=== PATIENT | female | born 1945 | race Caucasian/White ===

== ENCOUNTER → 2020-04-04 12:33 | Outpatient (BNVA) | payer MEDICARE, SELFPAY | PROVIDERS: Family Provider Family Medicine; PCP Family Medicine; Referring Provider Family Medicine; Visit Provider Specialist | DX: G30.9 Alzheimer's disease, unspecified (principal); F02.80 Dementia in other diseases classified elsewhere, unspecified severity, without behavioral disturbance, psychotic disturbance, mood disturbance, and anxiety; Z87.891 Personal history of nicotine dependence | CPT/HCPCS: 99204 ==

== ENCOUNTER → 2020-06-06 14:57 | Outpatient (BNVA) | payer MEDICARE, SELFPAY | PROVIDERS: Family Provider Family Medicine; PCP Family Medicine; Visit Provider Internal Medicine | DX: M32.9 Systemic lupus erythematosus, unspecified (principal); M19.90 Unspecified osteoarthritis, unspecified site | CPT/HCPCS: 99213 ==

== ENCOUNTER → 2020-06-18 10:07 | Outpatient (BNVA) | payer MEDICARE, SELFPAY | PROVIDERS: Family Provider Family Medicine; PCP Family Medicine; Visit Provider Family Medicine | DX: D50.9 Iron deficiency anemia, unspecified (principal); E53.8 Deficiency of other specified B group vitamins; Z13.6 Encounter for screening for cardiovascular disorders | CPT/HCPCS: 80053; 80061; 82607; 85025 ==

== ENCOUNTER → 2020-06-20 11:35 | Outpatient (BNVA) | payer MEDICARE, SELFPAY | PROVIDERS: Family Provider Family Medicine; PCP Family Medicine; Visit Provider Specialist | DX: G30.9 Alzheimer's disease, unspecified (principal); F02.80 Dementia in other diseases classified elsewhere, unspecified severity, without behavioral disturbance, psychotic disturbance, mood disturbance, and anxiety; R41.3 Other amnesia | CPT/HCPCS: 99213 ==

== ENCOUNTER → 2021-01-09 08:52 | Outpatient (BNVA) | payer MEDICARE, SELFPAY | PROVIDERS: Family Provider Family Medicine; PCP Family Medicine; Visit Provider Specialist | DX: G31.01 Pick's disease (principal); G30.9 Alzheimer's disease, unspecified; F02.80 Dementia in other diseases classified elsewhere, unspecified severity, without behavioral disturbance, psychotic disturbance, mood disturbance, and anxiety; R45.1 Restlessness and agitation; Z87.891 Personal history of nicotine dependence | CPT/HCPCS: 99214 ==

== ENCOUNTER → 2021-06-06 15:33 | Outpatient (BNVA) | payer MEDICARE, SELFPAY | PROVIDERS: Family Provider Family Medicine; PCP Family Medicine; Visit Provider Family Medicine | DX: Z13.6 Encounter for screening for cardiovascular disorders (principal); M19.90 Unspecified osteoarthritis, unspecified site; R60.9 Edema, unspecified; Z78.0 Asymptomatic menopausal state; Z12.31 Encounter for screening mammogram for malignant neoplasm of breast | CPT/HCPCS: 80053; 80061; 85025; 85651; 86140 ==

== ENCOUNTER → 2021-07-09 09:15 | Outpatient (BNVA) | payer MEDICARE, SELFPAY | PROVIDERS: Family Provider Family Medicine; PCP Family Medicine; Visit Provider Specialist | DX: G30.9 Alzheimer's disease, unspecified (principal); F02.80 Dementia in other diseases classified elsewhere, unspecified severity, without behavioral disturbance, psychotic disturbance, mood disturbance, and anxiety; R45.1 Restlessness and agitation; Z87.891 Personal history of nicotine dependence | CPT/HCPCS: 99214 ==

== ENCOUNTER 2021-07-24 13:30 | Outpatient (CLI) | payer MEDICARE, SELFPAY ==
--- NOTE | 2021-07-24 13:39 | MM_ITS ---
WS: [id number] BILATERAL DIGITAL SCREENING MAMMOGRAPHY WITH CAD CLINICAL INFORMATION: annual screening HISTORY: Screening mammogram. No current complaints. COMPARISON: TECHNIQUE: Bilateral CC and MLO views. FINDINGS: The breasts are composed of heterogeneous fibroglandular density tissue, which can limit the detectio n of small underlying mass lesions. No suspicious mass, asymmetry, calcifications, or architectural d istortion. No evidence of malignancy. A few punctate calcifications subareolar left breast are stable . Lucent centered calcification. MM/[place] [id number] IMPRESSION: BI-RADS: 2-Benign FOLLOW UP: 1 Year Follow-up Recommend return to annual screening mammography.
== END 2021-07-24 13:31 | disposition home or self-care (01) ==
LOC: RADSHAW 13:37
PROVIDERS: PCP Family Medicine; Visit Provider Family Medicine
DX: Z12.31 Encounter for screening mammogram for malignant neoplasm of breast (principal)
CPT/HCPCS: 77067

== ENCOUNTER → 2021-07-25 09:48 | Outpatient (BNVA) | payer MEDICARE, SELFPAY | PROVIDERS: PCP Family Medicine; Visit Provider Internal Medicine Rheumatology | DX: M06.041 Rheumatoid arthritis without rheumatoid factor, right hand (principal); M06.042 Rheumatoid arthritis without rheumatoid factor, left hand; Z79.899 Other long term (current) drug therapy; Z11.59 Encounter for screening for other viral diseases; Z11.1 Encounter for screening for respiratory tuberculosis; R76.8 Other specified abnormal immunological findings in serum; G30.9 Alzheimer's disease, unspecified; F02.80 Dementia in other diseases classified elsewhere, unspecified severity, without behavioral disturbance, psychotic disturbance, mood disturbance, and anxiety; Z71.89 Other specified counseling; Z87.891 Personal history of nicotine dependence | CPT/HCPCS: 99214 ==

== ENCOUNTER → 2021-10-15 08:12 | Outpatient (BNVA) | payer MEDICARE, SELFPAY | PROVIDERS: PCP Family Medicine; Visit Provider Specialist | DX: G30.9 Alzheimer's disease, unspecified (principal); F02.80 Dementia in other diseases classified elsewhere, unspecified severity, without behavioral disturbance, psychotic disturbance, mood disturbance, and anxiety | CPT/HCPCS: 99214 ==

== ENCOUNTER → 2021-10-23 10:54 | Outpatient (BNVA) | payer MEDICARE, SELFPAY | PROVIDERS: PCP Family Medicine; Visit Provider Family Medicine | DX: E53.8 Deficiency of other specified B group vitamins (principal); M19.90 Unspecified osteoarthritis, unspecified site; Z11.59 Encounter for screening for other viral diseases; Z79.899 Other long term (current) drug therapy | CPT/HCPCS: 80076; 82565; 85025; 86140; 86704; 86803; 87340 ==

== ENCOUNTER → 2021-11-05 12:46 | Outpatient (BNVA) | payer MEDICARE, SELFPAY | PROVIDERS: PCP Family Medicine; Visit Provider Internal Medicine Rheumatology | DX: M19.90 Unspecified osteoarthritis, unspecified site (principal); R76.8 Other specified abnormal immunological findings in serum; Z79.899 Other long term (current) drug therapy; G30.9 Alzheimer's disease, unspecified; Z71.89 Other specified counseling; Z87.891 Personal history of nicotine dependence | CPT/HCPCS: 99214 ==

== ENCOUNTER 2021-12-06 09:01 | Emergency (ER) | payer MEDICARE, SELFPAY ==
--- NOTE | 2021-12-06 09:04 | ED_ITS ---
HPI - Syncope General: Chief Complaint: Syncope Stated Complaint: SYNCOPAL EPISODE Time Seen by Provider: 12/06/21 09:04 Source: family and EMS Mode of arrival: EMS Limitations: altered mental status History of Present Illness: HPI narrative: Ms. Metzger is a 76-year-old lady with history of dementia, lupus, rheumatoid arthritis who presents to the emergency department due to syncope and chest pain. History is limited by patient's baseline mental status however provided by patient's family at bedside. Reportedly she has been at her baseline health, perhaps a little more disturbance in sleep than normal however no significant other changes. This morning she was sitting in coffee and all of a sudden appeared distressed. She grabbed her chest and said ouch. She subsequently appeared more distress for a number of minutes and then had a syncopal episode. Shallow breathing associated with this however reportedly normal pulse and color. Lasted approximately 7 minutes and resolved prior to EMS arrival. No history of similar. No other significant changes in health, exacerbating, relieving factors identified. History otherwise limited by patient's baseline mental status complaint: loss of consciousness Onset (ago): minute(s) Duration of episode: 7 -: minutes(s) Prodromal symptoms: chest pain Witnessed: Yes - by Other () Context: at rest Associated symptoms: Reports no associated symptoms Treatments prior to arrival: none Review of Systems General: Reports: 10 or more systems reviewed and unremarkable except in HPI and below (Questionable reliability from patient, aided by family) [facility] ED PFSH: Medical History High risk medication use Immunization counseling Inflammatory arthritis Lupus Osteoarthritis Osteoporosis Positive PILAR (antinuclear antibody) Post-menopausal Seronegative rheumatoid arthritis of both hands Vitamin B12 deficiency Surgical History H/O: hysterectomy History of tonsillectomy Family History Father Alzheimer disease Mother CAD (coronary artery disease) Social History Quit status (tobacco): has quit using tobacco Year quit tobacco: 20 years ago Physical Exam Const: COMMON NORMALS: alert GENERAL APPEARANCE: cooperative and well developed ORIENTATION/CONSCIOUSNESS: not oriented to person, not oriented to place and not oriented to time HENMT: COMMON NORMALS: normocephalic and atraumatic HEAD & SCALP: normocephalic and atraumatic THROAT: posterior oropharynx normal Eye: COMMON NORMALS: conjunctivae normal CONJUNCTIVA: Yes conjunctivae normal SCLERA: sclerae normal Neck/C-Spine: COMMON NORMALS: supple GENERAL: Yes trachea midline Resp: COMMON NORMALS: normal respiratory effort and clear to auscultation bilaterally AUSCULTATION: clear to auscultation bilaterally Cardio: COMMON NORMALS: regular rate and regular rhythm RATE: regular rate RHYTHM: regular rhythm GI: COMMON NORMALS: Soft to palpation PALPATION: Yes Soft to palpation and No Tenderness to palpation present (GI) PERCUSSION: normal to percussion Extremity: GENERAL: Yes normal exam except as noted and No edema Neuro: COMMON NORMALS: moves all extremities, no focal motor deficits and no sensory deficits noted SENSORIUM/ORIENTATION: Yes alert, No oriented to person, No oriented to place, No oriented to time and Yes Orientation impaired OTHER: Limited neurologic exam due to patient ability to perform tasks. No gross focal neurologic or sensory deficit appreciated. Psych: THOUGHT PROCESS: confused MEMORY/COGNITION: Yes memory grossly impaired Course ED course: - Patient was seen and evaluated by me at bedside - Vital signs obtained - Exam as noted above, tearful, limited history secondary to baseline mental status - I ordered labs and imaging on this patient however was notified afterwards, apparently after IV attempt that was unsuccessful, that the family wishes to take the patient home. - I explained my concerns including the seriousness of reported history of requiring immediate further evaluation to rule out life-threatening conditions. Patient's family verbalized understanding however continues to desire to take her home. I explained risks of leaving AGAINST MEDICAL ADVICE and benefits of further testing. I explained risk specifically of or permanent pain/debility. They verbalized understanding. Family understands that they may return to the emergency department with the patient for any reason at any time. Note: Click bubbles or prepopulated forte in note writing are used for assistance with data collection and billing and are inherently more limited than narrative and other text portions of this note. Please use narrative for additional clinical history and defer to narrative/free test for any case of contradictory information. If information appears in only free text or click bubble it should be considered present or absent as reported. Please contact note technical writer and editor for clarifications of clinical information or contradictory information. MDM is a brief summary, contradictory or erroneous seeming information should be clarified and full note should be reviewed. Vital Signs: Vital signs: Vital Signs Temperature 97.1 F L 12/06/21 09:05 Pulse Rate 68 12/06/21 09:05 Respiratory Rate 12 12/06/21 09:05 Blood Pressure 212/111 12/06/21 09:05 Pulse Oximetry 93 12/06/21 09:05 MDM - Syncope MDM Narrative Medical decision making narrative: 76-year-old lady with history of dementia presenting for very concerning syncopal episode. Approximately 7 minutes of unresponsive time that was preceded by indication of chest pain. Nonfocal neurologic exam though history and exam are limited by patient's baseline mental status. /unfortunately, prior to completion of evaluation or obtaining imaging the patient left with family AGAINST MEDICAL ADVICE. Medical Records Attestation: I reviewed the patient's medical records. Lab Data Attestation: I reviewed the patient's lab results. EKG Data^ EKG 1: Attestation: I personally reviewed and interpreted this EKG as follows: EKG interpretation date: 12/06/21 EKG interpretation time: 10:03 Interpretation: Twelve-lead EKG shows a regular rhythm at a rate of 58. MN interval 189, QRS duration 89, QTc 420. Normal axis. Interpretation: Sinus bradycardia Discharge Plan Discharge Patient Disposition: Left Against Medical Advice Clinical Impression: Syncope, Chest pain Condition: Stable Prescriptions: No Action sucralfate [Carafate] 1 gram tablet 1 gm PO QAM 0RF donepezil [Aricept] 10 mg tablet 10 mg PO DAILY Qty: 30 5RF folic acid 1 mg tablet 1 mg PO DAILY Qty: 90 1RF prednisone 5 mg tablet 5 mg PO DAILY Qty: 30 3RF cyanocobalamin (vitamin B-12) 1,000 mcg/mL solution 1,000 mcg IM .MONTHLY Qty: 1 2RF Depo-Estradiol 5 mg/mL oil 2 mg IM .monthly 0RF citalopram 20 mg tablet 40 mg PO QAM 0RF methotrexate sodium 2.5 mg tablet 15 mg PO Q7D 0RF Rx Instructions: Every Thursday. pantoprazole 40 mg tablet,delayed release (DR/EC) 40 mg PO DAILY 0RF Rx Instructions: 30 minutes before meal Referrals: Fiorella Spencer DO [Primary Care Provider] - Coding Level of Care Code ED Car Detailer for Chg Fwd Exam Comprehensive
[2021-12-06 09:05] VITALS: BP 212/111; PULSE 68; RESP 12; TEMP 36.2; O2SAT 93; BMI 19.7
--- NOTE | 2021-12-06 09:22 | XR_ITS ---
WS: [id number] Exam: XR chest 1V portable [id number] Date/Time of Exam: 12/06/2021 9:22 AM Reason For Exam: syncope Comparison 11/19/2015. Findings: The lungs are clear and fully expanded. Costophrenic angles are sharp. No infiltrates. Bronchovascula r relief appears normal. Cardiac silhouette is unremarkable. Bony elements are intact. XR/XR chest 1V portable [id number] IMPRESSION: Unremarkable chest radiograph.
--- NOTE | 2021-12-06 09:23 | ECG_ITS ---
[facility] Test Date: 2021-12-06 Pat Name: Kate Metzger Department: Room: Gender: Female Electronics Technology Department Chair: : 1945 Requested By: Grzegorz Hamlin Order Number: [id number] Jolene MD: Grant Hoffmann M.D. Measurements Intervals [place] Rate: 58 P: 58 MT: 189 QRS: 52 QRSD: 89 T: 52 QT: 422 QTc: 418 Interpretive Statements SINUS BRADYCARDIA INTERPRETATION BASED ON A DEFAULT AGE OF 40 YEARS No previous ECG available for comparison Electronically Signed On 12-07-2021 14:07:27 CABLE TELEVISION PROGRAM DIRECTOR by Grant Hoffmann M.D. [email or web address]
--- NOTE | 2021-12-06 09:58 | PC.PHAR ---
PT STATES DISC. ZYPREXA DUE TO CAUSING DROWSINESS
--- NOTE | 2021-12-06 10:18 | PC.NURSE ---
ATTEMPTED IV WITH OUT SUCCESS PT FAMILY STATES, WE'RE DONE WE'RE NOT TRYING ANYMORE . THEN STATES THAT HE WANTS TO LEAVE. INFORMED DR. HERRERA HE PRESENTS TO BEDSIDE TO SPEAK WITH FAMILY.
== END 2021-12-06 10:46 | disposition left against medical advice (07) ==
PROVIDERS: Emergency Provider Emergency Medicine; PCP Family Medicine
DX: R55 Syncope and collapse (principal); R07.9 Chest pain, unspecified; Z53.21 Procedure and treatment not carried out due to patient leaving prior to being seen by health care provider; Z87.891 Personal history of nicotine dependence
CPT/HCPCS: 71045; 93005; 99282

== ENCOUNTER → 2022-01-23 10:35 | Outpatient (BNVA) | payer MEDICARE, SELFPAY | PROVIDERS: PCP Family Medicine; Visit Provider Nurse Practitioner Family | DX: Z20.822 Contact with and (suspected) exposure to COVID-19 (principal) | CPT/HCPCS: 87635 ==

== ENCOUNTER → 2022-01-28 15:51 | Outpatient (BNVA) | payer MEDICARE, SELFPAY | PROVIDERS: PCP Family Medicine; Visit Provider Family Medicine | DX: N39.0 Urinary tract infection, site not specified (principal); G30.9 Alzheimer's disease, unspecified; F02.80 Dementia in other diseases classified elsewhere, unspecified severity, without behavioral disturbance, psychotic disturbance, mood disturbance, and anxiety; R45.1 Restlessness and agitation | CPT/HCPCS: 81003; 87077; 87086; 87184 ==

== ENCOUNTER → 2022-02-12 10:05 | Outpatient (BNVA) | payer MEDICARE, SELFPAY | PROVIDERS: PCP Family Medicine; Visit Provider Specialist | DX: G30.9 Alzheimer's disease, unspecified (principal); F02.81 Dementia in other diseases classified elsewhere, unspecified severity, with behavioral disturbance; Z87.891 Personal history of nicotine dependence | CPT/HCPCS: 99214 ==

== ENCOUNTER 2022-03-17 15:26 | Emergency (ER) | payer MEDICARE, SELFPAY ==
[2022-03-17] VITALS (15 sets, daily range): BP systolic 106–159; BP diastolic 65–91; PULSE 92–116; RESP 14–20; TEMP 36.8; O2SAT 96–100; BMI 27.4
--- NOTE | 2022-03-17 15:48 | ECG_ITS ---
[facility] Test Date: 2022-03-17 Pat Name: Kate Metzger Department: Room: Gender: Female Media Consultant Outside Sales: : 1945 Requested By: Russ Estrella Order Number: [id number] Jolene MD: Solomon Reardon M.D. Measurements Intervals [place] Rate: 110 P: 71 [place]: 156 QRS: 75 QRSD: 81 T: 69 QT: 318 QTc: 432 Interpretive Statements SINUS TACHYCARDIA POSSIBLE LEFT ATRIAL ENLARGEMENT [-0.1mV P-WAVE IN V1/V2] ABNORMAL RHYTHM ECG Compared to ECG 12/06/2021 10:01:25 Sinus bradycardia no longer present Electronically Signed On 03-17-2022 16:33:28 CDT by Solomon Reardon M.D. [id number]
--- NOTE | 2022-03-17 15:48 | XRR_ITS ---
PROCEDURE INFORMATION: Exam: XR Chest Exam date and time: 03/17/2022 4:09 PM Age: 76 years old Clinical indication: Cough and dyspnea; Additional info: Dyspnea/cough TECHNIQUE: Imaging protocol: XR of the chest. Views: 1 view. COMPARISON: CR XR chest 1V portable [id number] 12/06/2021 9:40 AM FINDINGS: Lungs: Unremarkable. No consolidation. Pleural spaces: Unremarkable. No pleural effusion. No pneumothorax. Heart/Mediastinum: Unremarkable. No cardiomegaly. Bones/joints: Unremarkable. XR/XR chest 1V portable [id number] IMPRESSION: No acute findings.
--- NOTE | 2022-03-17 16:18 | ED_ITS ---
Documented by User: Russ Hull DO 03/18/22 08:06 HPI - Altered Mental Status General: Chief Complaint: Altered Mental Status Stated Complaint: DECREASED INTAKE, AMS Time Seen by Provider: 03/17/22 15:47 Source: EMS Mode of arrival: ambulatory Limitations: no limitations History of Present Illness: 76-year-old female who is a current resident at a Alzheimer's unit at a [place] [facility]. Unable to get any history from her. Called EMS and [facility] are reporting that the patient has been less responsive not eating or drinking as well. She cries out in pain when her IV is started on her blood is drawn she does put up a bit of a struggle to withdraw from pain but is not able to answer any questions or give any history. MD complaint: altered mental status Onset (ago): unknown Severity: severe Consistency of symptoms: Getting Worse Context: other (Dementia) Review of Systems General: Reports: ROS unobtainable due to mental status PFSH ED PFSH: Medical History High risk medication use Immunization counseling Inflammatory arthritis Lupus Osteoarthritis Osteoporosis Positive PILAR (antinuclear antibody) Post-menopausal Seronegative rheumatoid arthritis of both hands Vitamin B12 deficiency Surgical History H/O: hysterectomy History of tonsillectomy Family History Father Alzheimer disease Mother CAD (coronary artery disease) Social History Smoking and tobacco status: former smoker Quit status (tobacco): has quit using tobacco Year quit tobacco: 20 years ago Physical Exam Const: COMMON NORMALS: no acute distress EXAM LIMITATIONS: altered mental s tatus NUTRITIONAL APPEARANCE: thin ORIENTATION/CONSCIOUSNESS: Yes awake HENMT: COMMON NORMALS: normocephalic, atraumatic and Normal external nose present HEAD & SCALP: normocephalic and atraumatic FACE & SINUS: normal facial exam NOSE: Normal external nose present and Normal nares present MOUTH: Normal oral and palatal mucosa present, lip normal, tongue normal and Normal salivary glands and ducts present Eye: COMMON NORMALS: conjunctivae normal and no scleral icterus CONJUNCTIVA: Yes conjunctivae normal Neck/C-Spine: COMMON NORMALS: full ROM, no lymphadenopathy, supple and no meningeal signs Lymph: LYMPHATIC: no lymphadenopathy noted Resp: COMMON NORMALS: normal respiratory effort, No retractions, No use of accessory muscles and clear to auscultation bilaterally AUSCULTATION: clear to auscultation bilaterally Cardio: COMMON NORMALS: regular rate and regular rhythm RATE: regular rate RHYTHM: regular rhythm GI: COMMON NORMALS: Soft to palpation and No hepatosplenomegaly present PALPATION: Yes Soft to palpation, No Tenderness to palpation present (GI), No Guarding due to palpation present (GI), No Rigid due to palpation and Yes No hepatosplenomegaly present : COMMON NORMALS: Yes no CVA tenderness BLADDER/KIDNEY EXAM: Yes no CVA tenderness Back/Pelvis: COMMON NORMALS: no CVA tenderness Neuro: MENINGEAL SIGNS: Yes no meningeal signs Course Vital Signs: Vital signs: Vital Signs Temperature 98.3 F 03/17/22 15:40 Pulse Rate 98 03/17/22 23:45 Respiratory Rate 14 03/17/22 23:45 Blood Pressure 135/86 03/17/22 23:45 Pulse Oximetry 97 03/17/22 23:45 MDM - Altered Mental Status Medical Decision Making Care signed out to Dr. Morin at change of shift. See final notes for diagnosis and disposition. Patient presents here with some confusion I did speak to [facility] nurse patient does have dementia and she states that she does get quite confused at times this is not really abnormal for her patient's resting comfortably here blood work here is all normal no signs of UTI CT head is normal she is stable for discharge back to the [place] [facility]. Medical Records I reviewed the patient's medical records. Lab Data I reviewed the patient's lab results. : 03/17/22 16:05 03/17/22 16:05 Radiology Impressions Chest X-Ray 03/17/22 15:48 IMPRESSION: No acute findings. ADDENDUM: 03/17/22 1631 Possible right lung mid field 12.5 mm nodule within overlapping chest lead, consider repeat exam with removal of the lead. Cervical Spine CT 03/17/22 17:06 IMPRESSION: No acute or dislocation fracture. Head CT 03/17/22 17:06 IMPRESSION: Negative for intracranial hemorrhage or mass effect. Laboratory Results WBC 14.0 10^3/uL (4.0-10.0) H 03/17/22 16:05 RBC 4.85 10^6/uL (4.1-5.3) 03/17/22 16:05 Hgb 14.3 g/dL (11.5-15.3) 03/17/22 16:05 Hct 47.9 % (37.0-47.0) H 03/17/22 16:05 MCV 98.8 fl (81-99) 03/17/22 16:05 MCH 29.5 pg (28.0-34.0) 03/17/22 16:05 MCHC 29.9 g/dL (30.0-36.0) L 03/17/22 16:05 RDW 14.6 % (12.1-15.1) 03/17/22 16:05 Plt Count 341 10^3/cmm (130-400) 03/17/22 16:05 MPV 10.2 fL (7.4-10.4) 03/17/22 16:05 Neut % (Auto) 84.8 % 03/17/22 16:05 Lymph % (Auto) 7.2 % 03/17/22 16:05 [place] % (Auto) 7.1 % 03/17/22 16:05 Eos % (Auto) 0.1 % 03/17/22 16:05 Baso % (Auto) 0.4 % 03/17/22 16:05 Neut # (Auto) 11.86 10^3/uL (1.8-7.7) H 03/17/22 16:05 Lymph # (Auto) 1.0 10^3/uL (0.8-4.8) 03/17/22 16:05 [place] # (Auto) 1.0 10^3/uL (0.2-0.9) H 03/17/22 16:05 Eos # (Auto) 0.0 10^3/uL (0.0-0.8) 03/17/22 16:05 Baso # (Auto) 0.1 10^3/uL (0.0-0.1) 03/17/22 16:05 Nucleated RBC % (auto) 0 % 03/17/22 16:05 Nucleated RBCs # 0.0 /100WBC 03/17/22 16:05 Sodium 143 mmol/L (136-145) 03/17/22 16:05 Potassium 4.8 mmol/L (3.5-5.1) 03/17/22 16:05 Chloride 108 mmol/L (98-107) H 03/17/22 16:05 Carbon Dioxide 20 mmol/L (22-29) L 03/17/22 16:05 Anion Gap 19.8 (5-19) H 03/17/22 16:05 BUN 37 mg/dL (8-23) H 03/17/22 16:05 Creatinine 1.5 mg/dL (0.5-0.9) H 03/17/22 16:05 GFR Calculation Not Reportable 03/17/22 16:05 Glucose 208 mg/dL (65-115) H 03/17/22 16:05 Calculated Osmolality 311 mOsm/kg (285-295) H 03/17/22 16:05 Calcium 9.4 mg/dL (8.5-10.5) 03/17/22 16:05 Total Bilirubin 0.8 mg/dL (0.15-1.2) 03/17/22 16:05 AST 82 U/L (0-32) H 03/17/22 16:05 ALT 81 U/L (0-33) H 03/17/22 16:05 Alkaline Phosphatase 73 IU/L (35-105) 03/17/22 16:05 Creatine Kinase 108 U/L (26-192) 03/17/22 16:05 Troponin T Baseline 61 ng/L (0-10) H 03/17/22 16:05 Troponin T 120 Minute 55.36 ng/L (0-10) H 03/17/22 17:46 Delta Troponin T -5.64 ABS# (0-10) L 03/17/22 17:46 Total Protein 7.1 g/dL (6.6-8.7) 03/17/22 16:05 Albumin 3.2 g/dL (3.5-5.2) L 03/17/22 16:05 Globulin 3.9 g/dL (1.3-4.6) 03/17/22 16:05 Urine Color Yellow (Yellow) 03/17/22 18:45 Urine Appearance Sl hazy (CLEAR) 03/17/22 18:45 Urine pH 5 (5-7) 03/17/22 18:45 Ur Specific [place] 1.020 (1.005-1.030) 03/17/22 18:45 Urine Protein Neg (Negative) 03/17/22 18:45 Urine Glucose (UA) Norm (Normal) 03/17/22 18:45 Urine Ketones 1+ (Negative) H 03/17/22 18:45 Urine Blood Neg (Negative) 03/17/22 18:45 Urine Nitrate Negative (Negative) 03/17/22 18:45 Urine Bilirubin 1+ (Negative) H 03/17/22 18:45 Urine Urobilinogen 4 mg/dL (Negative) H 03/17/22 18:45 Ur Leukocyte Esterase Negative (Negative) 03/17/22 18:45 Urine RBC None /hpf (0-2) 03/17/22 18:45 Urine WBC 0-4 /hpf (0-5) H 03/17/22 18:45 Ur Squamous Epith Cells Rare /hpf (0-5) 03/17/22 18:45 Amorphous Sediment Not Reportable 03/17/22 18:45 Urine Bacteria Trace /hpf (NONE) 03/17/22 18:45 Hyaline Casts 5-10 /lpf H 03/17/22 18:45 Coarse Granular Casts 0-4 /lpf H 03/17/22 18:45 Urine Mucus 1+ /hpf 03/17/22 18:45 Discharge Plan Discharge Patient Disposition: Home Clinical Impression: Altered mental status Condition: Stable Prescriptions: No Action prednisone 10 mg tablet 10 mg PO DAILY PRN (Reason: for flares) Qty: 30 0RF Rx Instructions: take 1 tab daily for 7 days methotrexate sodium 2.5 mg tablet 15 mg PO Q7D 0RF Rx Instructions: on thursday pantoprazole 40 mg tablet,delayed release (DR/EC) 40 mg PO DAILY@08 0RF Rx Instructions: 30 minutes before meal citalopram [Celexa] 40 mg Tablet 40 mg PO DAILY@08 0RF prednisone 5 mg Tablet 5 mg PO DAILY@08 0RF risperidone 0.25 mg tablet 0.25 mg PO TID@08,14,20 0RF Ativan 0.5 mg tablet 0.5 mg PO TID PRN (Reason: anxiety) 0RF cyanocobalamin (vitamin B-12) 1,000 mcg/mL solution 1,000 mcg IM Q30D 0RF folic acid 1 mg tablet 1 mg PO DAILY@08 0RF doxycycline hyclate 100 mg capsule 100 mg PO BID@08,20 0RF Rx Instructions: end date 03/22/22 olanzapine 10 mg tablet 5 mg PO BID@08,20 0RF Discharge Orders: Discharge ED (Routine); Ordered 03/17/22 Ordered By: Moira Morin Referrals: Jonn Biggs DO [Primary Care Provider] - Discharge Diet: Advance as tolerated Discharge Activity: Resume usual activity Patient Instructions: Altered Mental Status (ED) Coding Level of Care Code ED Research Investigator for Chg Fwd Documented by User: Moira Morin MD 03/17/22 20:37 HPI - Altered Mental Status General: Chief Complaint: Altered Mental Status Stated Complaint: DECREASED INTAKE, AMS Time Seen by Provider: 03/17/22 15:47 PFSH ED PFSH: Medical History High risk medication use Immunization counseling Inflammatory arthritis Lupus Osteoarthritis Osteoporosis Positive PILAR (antinuclear antibody) Post-menopausal Seronegative rheumatoid arthritis of both hands Vitamin B12 deficiency Surgical History H/O: hysterectomy History of tonsillectomy Family History Father Alzheimer disease Mother CAD (coronary artery disease) Social History Smoking and tobacco status: former smoker Quit status (tobacco): has quit using tobacco Year quit tobacco: 20 years ago Course Vital Signs: Vital signs: Vital Signs Temperature 98.3 F 03/17/22 15:40 Pulse Rate 98 03/17/22 23:45 Respiratory Rate 14 03/17/22 23:45 Blood Pressure 135/86 03/17/22 23:45 Pulse Oximetry 97 03/17/22 23:45 MDM - Altered Mental Status Medical Decision Making Patient presents here with some confusion I did speak to [facility] nurse jamil darshan does have dementia and she states that she does get quite confused at times this is not really abnormal for her patient's resting comfortably here blood work here is all normal no signs of UTI CT head is normal she is stable for discharge back to the [facility]. Lab Data : 03/17/22 16:05 03/17/22 16:05 Radiology Impressions Chest X-Ray 03/17/22 15:48 IMPRESSION: No acute findings. ADDENDUM: 03/17/22 1631 Possible right lung mid field 12.5 mm nodule within overlapping chest lead, consider repeat exam with removal of the lead. Cervical Spine CT 03/17/22 17:06 IMPRESSION: No acute or dislocation fracture. Head CT 03/17/22 17:06 IMPRESSION: Negative for intracranial hemorrhage or mass effect. Laboratory Results WBC 14.0 10^3/uL (4.0-10.0) H 03/17/22 16:05 RBC 4.85 10^6/uL (4.1-5.3) 03/17/22 16:05 Hgb 14.3 g/dL (11.5-15.3) 03/17/22 16:05 Hct 47.9 % (37.0-47.0) H 03/17/22 16:05 MCV 98.8 fl (81-99) 03/17/22 16:05 MCH 29.5 pg (28.0-34.0) 03/17/22 16:05 MCHC 29.9 g/dL (30.0-36.0) L 03/17/22 16:05 RDW 14.6 % (12.1-15.1) 03/17/22 16:05 Plt Count 341 10^3/cmm (130-400) 03/17/22 16:05 MPV 10.2 fL (7.4-10.4) 03/17/22 16:05 Neut % (Auto) 84.8 % 03/17/22 16:05 Lymph % (Auto) 7.2 % 03/17/22 16:05 [place] % (Auto) 7.1 % 03/17/22 16:05 Eos % (Auto) 0.1 % 03/17/22 16:05 Baso % (Auto) 0.4 % 03/17/22 16:05 Neut # (Auto) 11.86 10^3/uL (1.8-7.7) H 03/17/22 16:05 Lymph # (Auto) 1.0 10^3/uL (0.8-4.8) 03/17/22 16:05 [place] # (Auto) 1.0 10^3/uL (0.2-0.9) H 03/17/22 16:05 Eos # (Auto) 0.0 10^3/uL (0.0-0.8) 03/17/22 16:05 Baso # (Auto) 0.1 10^3/uL (0.0-0.1) 03/17/22 16:05 Nucleated RBC % (auto) 0 % 03/17/22 16:05 Nucleated RBCs # 0.0 /100WBC 03/17/22 16:05 Sodium 143 mmol/L (136-145) 03/17/22 16:05 Potassium 4.8 mmol/L (3.5-5.1) 03/17/22 16:05 Chloride 108 mmol/L (98-107) H 03/17/22 16:05 Carbon Dioxide 20 mmol/L (22-29) L 03/17/22 16:05 Anion Gap 19.8 (5-19) H 03/17/22 16:05 BUN 37 mg/dL (8-23) H 03/17/22 16:05 Creatinine 1.5 mg/dL (0.5-0.9) H 03/17/22 16:05 GFR Calculation Not Reportable 03/17/22 16:05 Glucose 208 mg/dL (65-115) H 03/17/22 16:05 Calculated Osmolality 311 mOsm/kg (285-295) H 03/17/22 16:05 Calcium 9.4 mg/dL (8.5-10.5) 03/17/22 16:05 Total Bilirubin 0.8 mg/dL (0.15-1.2) 03/17/22 16:05 AST 82 U/L (0-32) H 03/17/22 16:05 ALT 81 U/L (0-33) H 03/17/22 16:05 Alkaline Phosphatase 73 IU/L (35-105) 03/17/22 16:05 Creatine Kinase 108 U/L (26-192) 03/17/22 16:05 Troponin T Baseline 61 ng/L (0-10) H 03/17/22 16:05 Troponin T 120 Minute 55.36 ng/L (0-10) H 03/17/22 17:46 Delta Troponin T -5.64 ABS# (0-10) L 03/17/22 17:46 Total Protein 7.1 g/dL (6.6-8.7) 03/17/22 16:05 Albumin 3.2 g/dL (3.5-5.2) L 03/17/22 16:05 Globulin 3.9 g/dL (1.3-4.6) 03/17/22 16:05 Urine Color Yellow (Yellow) 03/17/22 18:45 Urine Appearance Sl hazy (CLEAR) 03/17/22 18:45 Urine pH 5 (5-7) 03/17/22 18:45 Ur Specific [place] 1.020 (1.005-1.030) 03/17/22 18:45 Urine Protein Neg (Negative) 03/17/22 18:45 Urine Glucose (UA) Norm (Normal) 03/17/22 18:45 Urine Ketones 1+ (Negative) H 03/17/22 18:45 Urine Blood Neg (Negative) 03/17/22 18:45 Urine Nitrate Negative (Negative) 03/17/22 18:45 Urine Bilirubin 1+ (Negative) H 03/17/22 18:45 Urine Urobilinogen 4 mg/dL (Negative) H 03/17/22 18:45 Ur Leukocyte Esterase Negative (Negative) 03/17/22 18:45 Urine RBC None /hpf (0-2) 03/17/22 18:45 Urine WBC 0-4 /hpf (0-5) H 03/17/22 18:45 Ur Squamous Epith Cells Rare /hpf (0-5) 03/17/22 18:45 Amorphous Sediment Not Reportable 03/17/22 18:45 Urine Bacteria Trace /hpf (NONE) 03/17/22 18:45 Hyaline Casts 5-10 /lpf H 03/17/22 18:45 Coarse Granular Casts 0-4 /lpf H 03/17/22 18:45 Urine Mucus 1+ /hpf 03/17/22 18:45 EKG Data EKG 1: I personally reviewed and interpreted this EKG as follows: EKG interpretation date: 03/17/22 EKG interpretation time: 18:59 Interpretation: sinus tach hr [address] or t wave abnormalities qrs 74 qtc 384 Discharge Plan Discharge Patient Disposition: Home Clinical Impression: Altered mental status Condition: Stable Prescriptions: No Action prednisone 10 mg tablet 10 mg PO DAILY PRN (Reason: for flares) Qty: 30 0RF Rx Instructions: take 1 tab daily for 7 days methotrexate sodium 2.5 mg tablet 15 mg PO Q7D 0RF Rx Instructions: on thursday pantoprazole 40 mg tablet,delayed release (DR/EC) 40 mg PO DAILY@08 0RF Rx Instructions: 30 minutes before meal citalopram [Celexa] 40 mg Tablet 40 mg PO DAILY@08 0RF prednisone 5 mg Tablet 5 mg PO DAILY@08 0RF risperidone 0.25 mg tablet 0.25 mg PO TID@08,14,20 0RF Ativan 0.5 mg tablet 0.5 mg PO TID PRN (Reason: anxiety) 0RF cyanocobalamin (vitamin B-12) 1,000 mcg/mL solution 1,000 mcg IM Q30D 0RF folic acid 1 mg tablet 1 mg PO DAILY@08 0RF doxycycline hyclate 100 mg capsule 100 mg PO BID@08,20 0RF Rx Instructions: end date 03/22/22 olanzapine 10 mg tablet 5 mg PO BID@08,20 0RF Discharge Orders: Discharge ED (Routine); Ordered 03/17/22 Ordered By: Moira Morin Referrals: Jonn Biggs, [Primary Care Provider] - Discharge Diet: Advance as tolerated Discharge Activity: Resume usual activity Patient Instructions: Altered Mental Status (ED) Coding Level of Care Code ED Research Investigator for Justa Hernández
[2022-03-17 16:31] LABS: Basophils # 0.1 10^3/uL (0.0-0.1); Basophils % 0.4 %; Eosinophils % 0.1 %; Hematocrit 47.9 % (37.0-47.0); Hemoglobin 14.3 g/dL (11.5-15.3); Lymphocytes % 7.2 %; Mean Corpuscular HGB Conc 29.9 g/dL (30.0-36.0); Mean Corpuscular Hemoglobin 29.5 pg (28.0-34.0); Mean Corpuscular Volume 98.8 fl (81-99); Mean Platelet Volume 10.2 fL (7.4-10.4); Monocytes % 7.1 %; Neutrophils # 11.86 10^3/uL (1.8-7.7); Neutrophils % 84.8 %; Nucleated Red Blood Cells % 0 %; Platelet Count 341 10^3/cmm (130-400); Red Blood Count 4.85 10^6/uL (4.1-5.3); Red Cell Distribution Width 14.6 % (12.1-15.1)
[2022-03-17 16:54] LABS: Troponin(5th) Baseline 61 ng/L (0-10)
[2022-03-17 16:58] LABS: Alanine Aminotransferase 81 U/L (0-33); Albumin Level 3.2 g/dL (3.5-5.2); Alkaline Phosphatase 73 IU/L (35-105); Aspartate Amino Transferase 82 U/L (0-32); Blood Urea Nitrogen 37 mg/dL (8-23); Calcium 9.4 mg/dL (8.5-10.5); Carbon Dioxide 20 mmol/L (22-29); Chloride 108 mmol/L (98-107); Creatine Phosphokinase 108 U/L (26-192); Globulin 3.9 g/dL (1.3-4.6); Glucose 208 mg/dL (65-115); Osmolality Calculated 311 mOsm/kg (285-295); Sodium 143 mmol/L (136-145); Total Bilirubin 0.8 mg/dL (0.15-1.2); Total Protein 7.1 g/dL (6.6-8.7)
[2022-03-17 17:06] LABS: Anion Gap 19.8 (5-19); Potassium 4.8 mmol/L (3.5-5.1)
--- NOTE | 2022-03-17 17:06 | CTR_ITS ---
PROCEDURE INFORMATION: Exam: CT Head Without Contrast Exam date and time: 03/17/2022 5:23 PM Age: 76 years old Clinical indication: Injury or trauma; Fall; Blunt trauma (contusions or hematomas); Additional info: Closed head injury TECHNIQUE: Imaging protocol: Computed tomography of the head without contrast. Radiation optimization: All CT scans at this facility use at least one of these dose optimization techniques: automated exposure control; mA and/or kV adjustment per patient size (includes targeted exams where dose is matched to clinical indication); or iterative reconstruction. COMPARISON: No relevant prior studies available. RADIATION DOSE METRICS: Total DLP (mGy-cm): 680.84 FINDINGS: Brain: Moderate diffuse white matter disease and parenchymal atrophy. Cerebral ventricles: No ventriculomegaly. Paranasal sinuses: Visualized sinuses are unremarkable. No fluid levels. Mastoid air cells: Visualized mastoid air cells are well aerated. Bones/joints: Unremarkable. No acute fracture. Soft tissues: Unremarkable. CT/CT head wo con* [id number] IMPRESSION: Negative for intracranial hemorrhage or mass effect.
--- NOTE | 2022-03-17 17:06 | CTR_ITS ---
PROCEDURE INFORMATION: Exam: CT Cervical Spine Without Contrast Exam date and time: 03/17/2022 5:26 PM Age: 76 years old Clinical indication: Injury or trauma; Fall; Blunt trauma TECHNIQUE: Imaging protocol: Computed tomography images of the cervical spine without contrast. Radiation optimization: All CT scans at this facility use at least one of these dose optimization techniques: automated exposure control; mA and/or kV adjustment per patient size (includes targeted exams where dose is matched to clinical indication); or iterative reconstruction. COMPARISON: CT head wo con* [id number] 03/17/2022 5:23 PM RADIATION DOSE METRICS: Total DLP (mGy-cm): 332.07 FINDINGS: Vertebrae: No acute fracture. Normal alignment. C2-C3: No significant disc protrusion. No severe spinal canal stenosis. No significant neural foraminal narrowing. C3-C4: No significant disc protrusion. No severe spinal canal stenosis. No significant neural foraminal narrowing. C4-C5: No significant disc protrusion. No severe spinal canal stenosis. No significant neural foraminal narrowing. C5-C6: No significant disc protrusion. No severe spinal canal stenosis. No significant neural foraminal narrowing. C6-C7: No significant disc protrusion. No severe spinal canal stenosis. No significant neural foraminal narrowing. C7-T1: No significant disc protrusion. No severe spinal canal stenosis. No significant neural foraminal narrowing. Soft tissues: Unremarkable. Lungs: Emphysematous changes. CT/CT cervical spin wo con* [id number] IMPRESSION: No acute or dislocation fracture.
--- NOTE | 2022-03-17 17:48 | ECG_ITS ---
[facility] Test Date: 2022-03-17 Pat Name: Kate Metzger Department: Room: Gender: Female Roller Inspector: : 1945 Requested By: Rsus Estrella Order Number: [id number] Jolene MD: Mele Coppola M.D. Measurements Intervals Breeding Rate: 104 P: 53 LA: 135 QRS: 74 QRSD: 74 T: 62 QT: 323 QTc: 426 Interpretive Statements SINUS TACHYCARDIA Compared to ECG 03/17/2022 16:17:46 No significant changes Electronically Signed On 03-18-2022 20:57:09 CDT by Mele Coppola M.D. [id number]
--- NOTE | 2022-03-17 17:52 | PC.PHAR ---
[facility] [place] [facility] pt takes the medications entered-zyprexa 5mg bid,doxycycline hyclate 100mg bid not on pts mar per [facility] the pt is taking-[id number] daily prn written on 03/17/22 not on pts mar either notes are made in the pharmacy comments
[2022-03-17 18:18] LABS: Troponin 5 2HR 55.36 ng/L (0-10); Troponin 5 2HR Delta -5.64 ABS# (0-10)
[2022-03-17 18:57] LABS: Add Urine Microscopic? YES; Bilirubin Urine 1+ (Negative); Blood Urine Neg (Negative); Glucose Urine UA Norm (Normal); Ketones Urine 1+ (Negative); Leukocyte Esterase Urine Negative (Negative); Nitrate Urine Negative (Negative); Protein Urine Neg (Negative); Urine Appearance SL Hazy (CLEAR); Urine Color Yellow (Yellow); Urobilinogen Urine 4 mg/dL (Negative); pH Urine 5 (5-7)
--- NOTE | 2022-03-17 18:59 | PC.NURSE ---
190 Assumed pt care from Kayley SANTOS
[2022-03-17 19:00] LABS: Bacteria Urine TRACE /hpf; Squamous Epithelial Cell Urine RARE /hpf (0-5); WBC Urine 0-4 /hpf (0-5)
[2022-03-17 19:01] LABS: Add Urine Culture? No; Coarse Granular Casts Urine 0-4 /lpf; Mucus Urine 1+ /hpf
[2022-03-17] MEDS: sodium chloride 0.9% 1,000 ML 999 ML IV (19:44)
== END 2022-03-17 23:55 | disposition home or self-care (01) ==
PROVIDERS: Family Medicine; Emergency Provider Emergency Medicine; PCP Family Medicine
DX: R41.82 Altered mental status, unspecified (principal); F03.90 Unspecified dementia, unspecified severity, without behavioral disturbance, psychotic disturbance, mood disturbance, and anxiety; Z87.891 Personal history of nicotine dependence
CPT/HCPCS: 70450; 71045; 72125; 80053; 81001; 82550; 84484; 85025; 93005; 96360; 99285; J7030

== ENCOUNTER → 2022-03-24 15:28 | Outpatient (BNVA) | payer MEDICARE, OTHER, SELFPAY | PROVIDERS: PCP Family Medicine; Visit Provider Internal Medicine Rheumatology | DX: M06.041 Rheumatoid arthritis without rheumatoid factor, right hand (principal); M06.042 Rheumatoid arthritis without rheumatoid factor, left hand; R76.8 Other specified abnormal immunological findings in serum; Z79.899 Other long term (current) drug therapy; G30.9 Alzheimer's disease, unspecified; F02.80 Dementia in other diseases classified elsewhere, unspecified severity, without behavioral disturbance, psychotic disturbance, mood disturbance, and anxiety; Z71.89 Other specified counseling | CPT/HCPCS: 99214 ==

== ENCOUNTER 2022-04-06 17:44 | Emergency (ER) | payer MEDICARE, SELFPAY ==
--- NOTE | 2022-04-06 17:58 | ED_ITS ---
HPI - Nausea/Vomiting/Diarrhea General: Chief complaint: Altered Mental Status Stated complaint: N/V Time Seen by Provider: 04/06/22 17:46 Limitations: altered mental status History of Present Illness: Ms. Metzger is a 76-year-old lady who resides at the intermediate with history of lupus and Alzheimer's per chart review presenting to the emergency department for nausea and vomiting. History is severely limited by patient's underlying mental state. Per chart review patient was seen at the intermediate by Dr. Frazier earlier today and no complaints were noted. The onset, quality, intensity, associated symptoms, provoking, exacerbating, or alleviating factors are unclear. Review of Systems General: Reports: ROS unobtainable due to mental status PFSH ED PFSH: Medical History High risk medication use Immunization counseling Inflammatory arthritis Lupus Osteoarthritis Osteoporosis Positive PILAR (antinuclear antibody) Post-menopausal Seronegative rheumatoid arthritis of both hands Vitamin B12 deficiency Surgical History H/O: hysterectomy History of tonsillectomy Family History Father Alzheimer disease Mother CAD (coronary artery disease) Social History Smoking and tobacco status: never smoked Quit status (tobacco): has quit using tobacco Year quit tobacco: 20 years ago Physical Exam Const: COMMON NORMALS: alert GENERAL APPEARANCE: well developed HENMT: COMMON NORMALS: normocephalic and atraumatic HEAD & SCALP: normocephalic and atraumatic Eye: COMMON NORMALS: conjunctivae normal CONJUNCTIVA: Yes conjunctivae normal SCLERA: sclerae normal Neck/C-Spine: COMMON NORMALS: supple GENERAL: Yes trachea midline Resp: COMMON NORMALS: normal respiratory effort EFFORT & INSPECTION: Yes able to speak in complete sentences Cardio: COMMON NORMALS: regular rate and regular rhythm RATE: regular rate RHYTHM: regular rhythm GI: COMMON NORMALS: Soft to palpation PALPATION: Yes Soft to palpation, Yes Tenderness to palpation present (GI), No Guarding due to palpation present (GI) and No Rigid due to palpation PERCUSSION: normal to percussion Extremity: GENERAL: Yes normal exam except as noted and No edema Neuro: COMMON NORMALS: moves all extremities SENSORIUM/ORIENTATION: Yes a lert and Yes Orientation impaired Psych: MEMORY/COGNITION: Yes memory grossly impaired and Yes cognition grossly impaired Course ED course: - Patient was seen and evaluated by me at bedside - Patient placed on cardiac monitors, IV access obtained - Initial evaluation notable for exam as above. Nonfocal neurologic exam. - Labs and xrays personally interpreted by me. EKG showing sinus rhythm with nonspecific ST segment abnormalities, no STEMI. - IV fluids given. Antiemetic given. - Labs notable for no significant hematologic abnormality. Metabolic panel notable for likely dehydration. Urinalysis not concerning for urinary tract infection. - Imaging notable for no lobar consolidation or pneumothorax on chest x-ray. CT head without evidence of acute intracranial hemorrhage or mass. CT abdomen pelvis with no acute pathology to explain symptoms. - Upon serial reexamination after treatment the patient was improved. - Based on patient history, evaluation, and testing as interpreted the most likely cause of the patient's condition is dehydration and altered mental status - The results of ED evaluation were discussed with the patient and family i ncluding possible disposition options. I offered admission versus trial of outpatient therapy, comfortable with outpatient therapy with strict return precautions. I discussed prescriptions and/or symptomatic cares (if applicable) including appropriate and responsible use, followup plan, and return precautions. The patient verbalized understanding and felt safe for discharge. - Patient discharged in satisfactory condition. Note: Click bubbles or prepopulated forte in note writing are used for assistance with data collection and billing and are inherently more limited than narrative and other text portions of this note. Please use narrative for additional clinical history and defer to narrative/free test for any case of contradictory information. If information appears in only free text or click bubble it should be considered present or absent as reported. Please contact note credit underwriter for clarifications of clinical information or contradictory information. MDM is a brief summary, contradictory or erroneous seeming information should be clarified and full note should be reviewed. Vital Signs: Vital signs: Vital Signs Temperature 97.1 F L 04/06/22 18:35 Pulse Rate 88 04/06/22 23:29 Respiratory Rate 17 04/06/22 23:29 Blood Pressure 108/60 04/06/22 23:29 Pulse Oximetry 97 04/06/22 23:29 MDM - Nausea/Vomiting/Diarrhea Medical Decision Making 76-year-old lady with history of dementia presenting due to altered mental status. ED evaluation notable for dehydration. Patient improved with treatment. Discussed possible disposition options. Satisfactory for outpatient management and strict return precautions. Medical Records I reviewed the patient's medical records. Lab Data I reviewed the patient's lab results. : 04/06/22 18:05 04/06/22 18:05 Radiology Impressions Abdomen/Pelvis CT 04/06/22 18:05 IMPRESSION: Negative for acute abdominopelvic pathology. Chest X-Ray 04/06/22 18:05 IMPRESSION: No acute findings. Head CT 04/06/22 18:05 IMPRESSION: No acute intracranial abnormality. Laboratory Results WBC 8.6 10^3/uL (4.0-10.0) 04/06/22 18:05 RBC 4.61 10^6/uL (4.1-5.3) 04/06/22 18:05 Hgb 13.6 g/dL (11.5-15.3) 04/06/22 18:05 Hct 42.8 % (37.0-47.0) 04/06/22 18:05 MCV 92.8 fl (81-99) 04/06/22 18:05 MCH 29.5 pg (28.0-34.0) 04/06/22 18:05 MCHC 31.8 g/dL (30.0-36.0) 04/06/22 18:05 RDW 14.4 % (12.1-15.1) 04/06/22 18:05 Plt Count 385 10^3/cmm (130-400) 04/06/22 18:05 MPV 10.0 fL (7.4-10.4) 04/06/22 18:05 Neut % (Auto) 63.7 % 04/06/22 18:05 Lymph % (Auto) 23.3 % 04/06/22 18:05 [place] % (Auto) 9.8 % 04/06/22 18:05 Eos % (Auto) 2.0 % 04/06/22 18:05 Baso % (Auto) 0.7 % 04/06/22 18:05 Neut # (Auto) 5.47 10^3/uL (1.8-7.7) 04/06/22 18:05 Lymph # (Auto) 2.0 10^3/uL (0.8-4.8) 04/06/22 18:05 [place] # (Auto) 0.8 10^3/uL (0.2-0.9) 04/06/22 18:05 Eos # (Auto) 0.2 10^3/uL (0.0-0.8) 04/06/22 18:05 Baso # (Auto) 0.1 10^3/uL (0.0-0.1) 04/06/22 18:05 Nucleated RBC % (auto) 0 % 04/06/22 18:05 Nucleated RBCs # 0.0 /100WBC 04/06/22 18:05 Sodium 148 mmol/L (136-145) H 04/06/22 18:05 Potassium 3.9 mmol/L (3.5-5.1) 04/06/22 18:05 Chloride 108 mmol/L (98-107) H 04/06/22 18:05 Carbon Dioxide 25 mmol/L (22-29) 04/06/22 18:05 Anion Gap 18.9 (5-19) 04/06/22 18:05 BUN 31 mg/dL (8-23) H 04/06/22 18:05 Creatinine 1.4 mg/dL (0.5-0.9) H 04/06/22 18:05 GFR Calculation Not Reportable 04/06/22 18:05 Glucose 109 mg/dL (65-115) 04/06/22 18:05 Calculated Osmolality 313 mOsm/kg (285-295) H 04/06/22 18:05 Calcium 8.9 mg/dL (8.5-10.5) 04/06/22 18:05 Total Bilirubin 0.4 mg/dL (0.15-1.2) 04/06/22 18:05 AST 14 U/L (0-32) 04/06/22 18:05 ALT 18 U/L (0-33) 04/06/22 18:05 Alkaline Phosphatase 50 IU/L (35-105) 04/06/22 18:05 Total Protein 6.8 g/dL (6.6-8.7) 04/06/22 18:05 Albumin 3.7 g/dL (3.5-5.2) 04/06/22 18:05 Globulin 3.1 g/dL (1.3-4.6) 04/06/22 18:05 Lipase 42 U/L (13-60) 04/06/22 18:05 Urine Color Dark yellow (Yellow) 04/06/22 18:20 Urine Appearance Clear (CLEAR) 04/06/22 18:20 Urine pH 5 (5-7) 04/06/22 18:20 Ur Specific [place] 1.025 (1.005-1.030) 04/06/22 18:20 Urine Protein Trace (Negative) 04/06/22 18:20 Urine Glucose (UA) Norm (Normal) 04/06/22 18:20 Urine Ketones Negative (Negative) 04/06/22 18:20 Urine Blood Neg (Negative) 04/06/22 18:20 Urine Nitrate Negative (Negative) 04/06/22 18:20 Urine Bilirubin 1+ (Negative) H 04/06/22 18:20 Urine Urobilinogen 4 mg/dL (Negative) H 04/06/22 18:20 Ur Leukocyte Esterase Negative (Negative) 04/06/22 18:20 Urine RBC None /hpf (0-2) 04/06/22 18:20 Urine WBC Rare /hpf (0-5) 04/06/22 18:20 Ur Squamous Epith Cells 0-4 /hpf (0-5) H 04/06/22 18:20 Amorphous Sediment Not Reportable 04/06/22 18:20 Urine Bacteria Trace /hpf (NONE) 04/06/22 18:20 Discharge Plan Discharge Patient Disposition: Home Clinical Impression: Alzheimer disease, Altered mental status, Dehydration Condition: Stable Prescriptions: New ondansetron 4 mg tablet,disintegrating 4 mg PO BID PRN (Reason: nausea and vomiting) Qty: 10 0RF No Action pantoprazole 40 mg tablet,delayed release (DR/EC) 40 mg PO DAILY@08 Qty: 30 3RF Rx Instructions: 30 minutes before meal Humira Pen 40 mg/0.8 mL pen injector kit 40 mg SUBCUT Q14D Qty: 2 3RF prednisone 10 mg tablet 10 mg PO DAILY PRN (Reason: for flares) Qty: 30 0RF citalopram [Celexa] 40 mg Tablet 40 mg PO DAILY@08 0RF cyanocobalamin (vitamin B-12) 1,000 mcg/mL solution 1,000 mcg IM Q30D 0RF acetaminophen 325 mg Tablet 650 mg PO Q6H PRN (Reason: Mild-moderate headache,..) 0RF Rx Instructions: musculoskeletal pain or fever >100degrees. NTE 3GM/24hours from all sources. magnesium hydroxide [Milk of Magnesia] 400 mg/5 mL Suspension 400 mg PO DAILY PRN (Reason: Constipation) 0RF Rx Instructions: If no bm in 3 days. If no bm in 12 hours after MOM was given, give bisacodyl suppository per order. bisacodyl 10 mg Suppository 10 mg CA DAILY PRN (Reason: Constipation not relieved by..) 0RF Rx Instructions: MOM. If no bm in 12hours, call licensed nurse. folic acid 1 mg Tablet 1 mg PO DAILY 0RF alum-mag hydroxide-simeth 200-200-20 mg/5 mL Suspension 30 ml PO Q4H PRN (Reason: Upset stomach or heartburn.) 0RF Rx Instructions: Notify MD if 4 doses or more are taken within 24hr period or has fever, abd pain, or bloody stool. prednisone 5 mg Tablet 10 mg PO DAILY 0RF loperamide 2 mg Tablet 2 mg PO . DIRECTED PRN (Reason: Diarrhea) 0RF Rx Instructions: administer 2 tabs after first loose stool until symptoms controlled; 1 tablet after each loose stool methotrexate sodium 2.5 mg Tablet 15 mg PO Q7D 0RF Rx Instructions: On Fridays olanzapine 5 mg Tablet 2.5 mg PO BID Qty: 30 0RF Discharge Orders: Discharge ED (Routine); Ordered 04/06/22 Ordered By: Grzegorz Hamlin Referrals: Jonn Biggs DO [Primary Care Provider] - Discharge Diet: Usual diet Discharge Activity: Resume usual activity Patient Instructions: Dehydration (ED), Altered Mental Status (ED) Activity Restrictions/Additional Instructions: Thank you for visiting the emergency department. You were seen and evaluated for altered mental status with concern for dehydration. Labs were notable for dehydration, the exact cause is unclear. We can try a course of antinausea medications and please ensure that you are staying hydrated. I recommend repeat laboratory studies within 1 week. Please be reevaluated in the next few days by primary care. Return to the emergency department for anything that you are concerned about and feel needs emergency department evaluation. 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
--- NOTE | 2022-04-06 18:05 | CTR_ITS ---
PROCEDURE INFORMATION: Exam: CT Head Without Contrast Exam date and time: 04/06/2022 7:04 PM Age: 76 years old Clinical indication: Altered mental status/memory loss; Confusion or disorientation; Additional info: AMS TECHNIQUE: Imaging protocol: Computed tomography of the head without contrast. Radiation optimization: All CT scans at this facility use at least one of these dose optimization techniques: automated exposure control; mA and/or kV adjustment per patient size (includes targeted exams where dose is matched to clinical indication); or iterative reconstruction. COMPARISON: CT head wo con* [id number] 03/17/2022 5:23 PM RADIATION DOSE METRICS: Total DLP (mGy-cm): 1440.68 FINDINGS: Brain: There is diffuse cerebral atrophy and chronic microvascular white matter disease. There is no acute intracranial hemorrhage. Cerebral ventricles: There is moderate ex vacuo dilation of the lateral ventricles. Basal cisterns are unremarkable. Paranasal sinuses: The paranasal sinuses are clear. Mastoid air cells: The mastoid air cells are clear. Bones/joints: The calvarium is intact. Soft tissues: The visible extracranial soft tissues are unremarkable. CT/CT head wo con* [id number] IMPRESSION: No acute intracranial abnormality.
--- NOTE | 2022-04-06 18:05 | XRR_ITS ---
PROCEDURE INFORMATION: Exam: XR Chest Exam date and time: 04/06/2022 6:28 PM Age: 76 years old Clinical indication: Dyspnea; Additional info: AMS TECHNIQUE: Imaging protocol: XR of the chest. Views: 1 view. COMPARISON: CR XR chest 1V portable [id number] 03/17/2022 4:09 PM FINDINGS: Lungs: Unremarkable. No consolidation. Pleural spaces: Unremarkable. No pleural effusion. No pneumothorax. Heart/Mediastinum: Unremarkable. No cardiomegaly. Bones/joints: Unremarkable. XR/XR chest 1V portable [id number] IMPRESSION: No acute findings.
--- NOTE | 2022-04-06 18:05 | CTR_ITS ---
PROCEDURE INFORMATION: Exam: CT Abdomen And Pelvis With Contrast Exam date and time: 04/06/2022 7:11 PM Age: 76 years old Clinical indication: Abdominal pain; Generalized; Additional info: AMS, abd pain TECHNIQUE: Imaging protocol: Computed tomography of the abdomen and pelvis with contrast. Radiation optimization: All CT scans at this facility use at least one of these dose optimization techniques: automated exposure control; mA and/or kV adjustment per patient size (includes targeted exams where dose is matched to clinical indication); or iterative reconstruction. Contrast material: VISIPAQUE 320; Contrast volume: 50 ml; Contrast route: INTRAVENOUS (IV); COMPARISON: CR (CHEST, ) 04/06/2022 6:28 PM RADIATION DOSE METRICS: Total DLP (mGy-cm): 913.45 FINDINGS: Liver: Multiple circumscribed hypoattenuating liver lesions consistent with simple cysts. Largest lesion lateral right lobe measures 1.5 cm x 1.5 cm. Gallbladder and bile ducts: Normal. No calcified stones. No ductal dilation. Pancreas: Normal. No ductal dilation. Spleen: Normal. No splenomegaly. Adrenal glands: Normal. No mass. Kidneys and ureters: Normal. No hydronephrosis. Stomach and bowel: Extensive diverticulosis coli. No inflammatory bowel wall thickening. Negative for bowel obstruction or perforation. Appendix: No evidence of appendicitis. Intraperitoneal space: Unremarkable. No free air. No significant fluid collection. Vasculature: Diffuse abdominal aorta atherosclerosis. No aneurysm. Negative for dissection. Lymph nodes: Unremarkable. No enlarged lymph nodes. Urinary bladder: Unremarkable as visualized. Reproductive: Hysterectomy. Bones/joints: Unremarkable. No acute fracture. Soft tissues: Unremarkable. CT/CT abdomen pelvis w con* [id number] IMPRESSION: Negative for acute abdominopelvic pathology.
[2022-04-06 18:11] LABS: Basophils # 0.1 10^3/uL (0.0-0.1); Basophils % 0.7 %; Eosinophils # 0.2 10^3/uL (0.0-0.8); Hematocrit 42.8 % (37.0-47.0); Hemoglobin 13.6 g/dL (11.5-15.3); Lymphocytes % 23.3 %; Mean Corpuscular HGB Conc 31.8 g/dL (30.0-36.0); Mean Corpuscular Hemoglobin 29.5 pg (28.0-34.0); Mean Corpuscular Volume 92.8 fl (81-99); Monocytes # 0.8 10^3/uL (0.2-0.9); Monocytes % 9.8 %; Neutrophils # 5.47 10^3/uL (1.8-7.7); Neutrophils % 63.7 %; Nucleated Red Blood Cells % 0 %; Platelet Count 385 10^3/cmm (130-400); Red Blood Count 4.61 10^6/uL (4.1-5.3); Red Cell Distribution Width 14.4 % (12.1-15.1); White Blood Count 8.6 10^3/uL (4.0-10.0)
[2022-04-06 18:27] LABS: Alanine Aminotransferase 18 U/L (0-33); Albumin Level 3.7 g/dL (3.5-5.2); Alkaline Phosphatase 50 IU/L (35-105); Anion Gap 18.9 (5-19); Aspartate Amino Transferase 14 U/L (0-32); Blood Urea Nitrogen 31 mg/dL (8-23); Calcium 8.9 mg/dL (8.5-10.5); Carbon Dioxide 25 mmol/L (22-29); Chloride 108 mmol/L (98-107); Globulin 3.1 g/dL (1.3-4.6); Glucose 109 mg/dL (65-115); Lipase 42 U/L (13-60); Osmolality Calculated 313 mOsm/kg (285-295); Potassium 3.9 mmol/L (3.5-5.1); Sodium 148 mmol/L (136-145); Total Bilirubin 0.4 mg/dL (0.15-1.2); Total Protein 6.8 g/dL (6.6-8.7)
[2022-04-06] MEDS: LORazepam 2 mg/mL INJ 1 mL 0.5 MG IVP (18:28)
[2022-04-06] MEDS: ondansetron 2 mg/ML SDV 2 mL 4 MG IVP (18:28)
[2022-04-06 18:32] VITALS: BMI 29.2
[2022-04-06 18:35] VITALS: BP 136/84; PULSE 104; RESP 18; TEMP 36.2; O2SAT 95
[2022-04-06 18:52] LABS: Glucose Urine UA Norm (Normal); Ketones Urine Negative (Negative); Protein Urine Trace (Negative); Specific Gravity, Urine 1.025 (1.005-1.030); Urine Appearance Clear (CLEAR); Urine Color Dark Yellow (Yellow); pH Urine 5 (5-7)
[2022-04-06 18:53] LABS: Add Urine Microscopic? YES; Bilirubin Urine 1+ (Negative); Blood Urine Neg (Negative); Leukocyte Esterase Urine Negative (Negative); Nitrate Urine Negative (Negative); Urobilinogen Urine 4 mg/dL (Negative)
[2022-04-06 18:54] LABS: WBC Urine RARE /hpf (0-5)
[2022-04-06 18:55] LABS: Bacteria Urine TRACE /hpf; Squamous Epithelial Cell Urine 0-4 /hpf (0-5)
[2022-04-06 18:57] LABS: Add Urine Culture? No
--- NOTE | 2022-04-06 19:18 | PC.NURSE ---
received report. Patient brought in for N/V, sudden onset. patient is non verbal. She has had labs and CT head, ABD/Pelvis, awaiting results. patient resting quietly. NAD noted. Cares met.
[2022-04-06] MEDS: iodixanol 320 mg/mL 100mL Btl IV (19:21)
[2022-04-06] MEDS: sodium chloride 0.9% 500 ML 999 ML IV (20:01)
[2022-04-06 20:03] VITALS: BP 118/66; PULSE 108; RESP 19; O2SAT 100
[2022-04-06] MEDS: sodium chloride 0.9% 1,000 ML 999 ML IV (21:07)
[2022-04-06 23:29] VITALS: BP 108/60; PULSE 88; RESP 17; O2SAT 97
== END 2022-04-06 23:31 | disposition home or self-care (01) ==
PROVIDERS: Emergency Medicine; Emergency Provider Emergency Medicine; PCP Family Medicine
DX: G30.9 Alzheimer's disease, unspecified (principal); F02.80 Dementia in other diseases classified elsewhere, unspecified severity, without behavioral disturbance, psychotic disturbance, mood disturbance, and anxiety; E86.0 Dehydration
CPT/HCPCS: 70450; 71045; 74177; 80053; 81001; 83690; 85025; 96361; 96374; 96375; 99284; J2060; J2405; J7030; J7040; Q9967

== ENCOUNTER 2022-04-12 19:25 | Inpatient (IN) | payer MEDICARE, SELFPAY ==
[2022-04-12] VITALS (8 sets, daily range): BP systolic 115–163; BP diastolic 70–104; PULSE 58–132; RESP 16–20; TEMP 36.3–36.6; O2SAT 95; BMI 22.1
--- NOTE | 2022-04-12 19:42 | CTR_ITS ---
PROCEDURE INFORMATION: Exam: CT Head Without Contrast Exam date and time: 04/12/2022 8:20 PM Age: 76 years old Clinical indication: Altered mental status/memory loss; Additional info: AMS TECHNIQUE: Imaging protocol: Computed tomography of the head without contrast. Radiation optimization: All CT scans at this facility use at least one of these dose optimization techniques: automated exposure control; mA and/or kV adjustment per patient size (includes targeted exams where dose is matched to clinical indication); or iterative reconstruction. COMPARISON: CT head wo con* [id number] 04/06/2022 7:04 PM RADIATION DOSE METRICS: Total DLP (mGy-cm): 651.89 FINDINGS: Brain: Mild hypodense changes are noted in the bilateral periventricular regions, likely related to chronic microvascular ischemic disease. There is moderate brain parenchymal atrophy. These findings are unchanged. No acute intracranial hemorrhage, mass effect or midline shift. Cerebral ventricles: No pathologic ventricular dilatation. Paranasal sinuses: Visualized sinuses are unremarkable. No fluid levels. Mastoid air cells: Visualized mastoid air cells are well aerated. Bones/joints: Unremarkable. No acute fracture. Soft tissues: Unremarkable. CT/CT head wo con* [id number] IMPRESSION: No acute intracranial findings.
--- NOTE | 2022-04-12 19:42 | XRR_ITS ---
PROCEDURE INFORMATION: Exam: XR Chest Exam date and time: 04/12/2022 8:10 PM Age: 76 years old Clinical indication: Shortness of breath; Additional info: AMS TECHNIQUE: Imaging protocol: XR of the chest. Views: 1 view. COMPARISON: CR (CHEST, ) 04/06/2022 6:28 PM FINDINGS: Lungs: No consolidation. Pleural spaces: Stable pleural thickening bilateral apical regions. No pleural effusion. No pneumothorax. Heart/Mediastinum: No cardiomegaly. Bones/joints: No acute findings. Probable osteopenia. XR/XR chest 1V portable [id number] IMPRESSION: No acute findings.
--- NOTE | 2022-04-12 19:45 | ECG_ITS ---
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 Measurements Intervals [place] Rate: 101 P: 75 NE: 149 QRS: 77 QRSD: 78 T: 30 QT: 333 QTc: 432 Interpretive Statements SINUS TACHYCARDIA MODERATE T-WAVE ABNORMALITY, CONSIDER INFERIOR ISCHEMIA [-0.1+ mV T-WAVE IN II/aVF] Compared to ECG 03/17/2022 18:59:20 T-wave abnormality now present Possible ischemia now present Electronically Signed On 04-13-2022 20:30:13 CDT by Mele Coppola M.D. [id number]
[2022-04-12 19:52] LABS: Basophils # 0.1 10^3/uL (0.0-0.1); Basophils % 0.7 %; Eosinophils # 0.1 10^3/uL (0.0-0.8); Eosinophils % 0.5 %; Hemoglobin 14.6 g/dL (11.5-15.3); Lymphocytes # 2.3 10^3/uL (0.8-4.8); Lymphocytes % 20.9 %; Mean Corpuscular HGB Conc 30.4 g/dL (30.0-36.0); Mean Corpuscular Volume 95.4 fl (81-99); Mean Platelet Volume 10.4 fL (7.4-10.4); Monocytes # 1.2 10^3/uL (0.2-0.9); Monocytes % 10.8 %; Neutrophils # 7.21 10^3/uL (1.8-7.7); Neutrophils % 66.3 %; Nucleated Red Blood Cells % 0 %; Platelet Count 368 10^3/cmm (130-400); Red Blood Count 5.03 10^6/uL (4.1-5.3); Red Cell Distribution Width 14.6 % (12.1-15.1); White Blood Count 10.9 10^3/uL (4.0-10.0)
[2022-04-12 20:06] LABS: Urine Appearance Clear (CLEAR); Urine Color Yellow (Yellow); pH Urine 5 (5-7)
[2022-04-12 20:07] LABS: Add Urine Microscopic? YES; Bilirubin Urine 1+ (Negative); Blood Urine 2+ (Negative); Glucose Urine UA Norm (Normal); Ketones Urine 1+ (Negative); Leukocyte Esterase Urine 1+ (Negative); Nitrate Urine Positive (Negative); Protein Urine 1+ (Negative); Urobilinogen Urine 1 mg/dL (Negative)
[2022-04-12 20:08] LABS: Add Urine Culture? Yes; Bacteria Urine 3+ /hpf; Mucus Urine 1+ /hpf; Squamous Epithelial Cell Urine 0-4 /hpf (0-5)
[2022-04-12 20:11] LABS: Troponin(5th) Baseline 50 ng/L (0-10)
[2022-04-12 20:13] LABS: Alanine Aminotransferase 37 U/L (0-33); Albumin Level 3.5 g/dL (3.5-5.2); Alkaline Phosphatase 49 IU/L (35-105); Aspartate Amino Transferase 24 U/L (0-32); Blood Urea Nitrogen 33 mg/dL (8-23); C Reactive Protein 9.5 mg/L (0.0-4.9); Calcium 9.6 mg/dL (8.5-10.5); Carbon Dioxide 23 mmol/L (22-29); Chloride 117 mmol/L (98-107); Globulin 3.4 g/dL (1.3-4.6); Glucose 91 mg/dL (65-115); Osmolality Calculated 325 mOsm/kg (285-295); Sodium 154 mmol/L (136-145); Total Bilirubin 0.4 mg/dL (0.15-1.2); Total Protein 6.9 g/dL (6.6-8.7)
[2022-04-12 20:14] LABS: ABG PCO2 37.2 mmHg (35-45); ABG PH Result 7.41 (7.35-7.45); Arterial Blood Gas Hematocrit 44.2 % (37-47); Blood Gas Allen Test Pos; Blood Gas Sample Site Brachial, left; Blood Gas Sample Type Arterial; HCO3 ABG 23.3 mmol/L (22-26); Oxygen Device NC; PO2 ABG 85.4 mmHg (80.0-100.0)
[2022-04-12 20:17] LABS: Anion Gap 17.9 (5-19)
[2022-04-12 20:18] LABS: Potassium 3.9 mmol/L (3.5-5.1)
[2022-04-12] MEDS: sodium chloride 0.9% 1,000 ML 999 ML IV ×2 (20:25→21:55)
[2022-04-12 20:36] LABS: Lactate (Lactic Acid level) 1.3 mmol/L (0.5-2.2)
--- NOTE | 2022-04-12 21:35 | PM.HP ---
Providers/Chief Complaint Primary Care Provider: Jonn Biggs DO Chief Complaint: AMS History of Present Illness The patient is a 76-year-old female who was transferred from the residential due to encephalopathy. Unfortunately, the patient has known history of Alzheimer?s dementia which is probably contributing to her mentation. Because of this she is unable provide any history of present illness or past medical history. The patient presents for further evaluation Review of Systems General: Reports: 10 or more systems reviewed and unremarkable except in HPI and below Medications/Allergies Home Medications Medication Instructions Recorded Confirmed Last Taken Type citalopram 40 mg tablet (Celexa) 40 mg PO DAILY@08 03/17/22 04/06/22 03/17/22 History cyanocobalamin (vitamin B-12) 1,000 mcg IM Q30D 03/17/22 04/06/22 Unknown History 1,000 mcg/mL injection solution doxycycline hyclate 100 mg capsule 100 mg PO BID@08,20 03/17/22 04/06/22 03/17/22 08:00 History lorazepam 0.5 mg tablet (Ativan) 0.5 mg PO TID PRN 03/17/22 04/06/22 Unknown History olanzapine 10 mg tablet 5 mg PO BID@08,20 03/17/22 04/06/22 03/17/22 08:00 History prednisone 10 mg tablet 10 mg PO DAILY PRN #30 tab 03/17/22 04/06/22 Unknown Rx risperidone 0.25 mg tablet 0.25 mg PO TID@08,14,20 03/17/22 04/06/22 03/17/22 14:00 History adalimumab 40 mg/0.8 mL 40 mg (0.8 mL) SUBCUT Q14D #2 ea 03/24/22 04/06/22 Unknown Rx subcutaneous pen kit (Humira Pen) pantoprazole 40 mg tablet,delayed 40 mg PO DAILY@08 #30 tab 03/24/22 04/06/22 Unknown Rx release prednisone 5 mg tablet 5 mg PO DAILY@08 #90 tab 03/24/22 04/06/22 Unknown Rx ondansetron 4 mg disintegrating 4 mg PO BID PRN #10 tab 04/06/22 Unknown Rx tablet Allergies Allergy/AdvReac Type Severity Reaction Status Date / Time acyclovir Allergy Unknown Verified 03/24/22 16:13 cefadroxil [From Duricef] Allergy Unknown Verified 03/24/22 16:13 ciprofloxacin [From Cipro] Allergy Unknown Verified 03/24/22 16:13 clarithromycin [From Biaxin] Allergy Unknown Verified 03/24/22 16:13 codeine Allergy Unknown Verified 03/24/22 16:13 doxycycline Allergy Unknown Verified 03/24/22 16:13 hydroxychloroquine Allergy Unknown Verified 03/24/22 16:13 [From Plaquenil] hydroxyzine [From Atarax] Allergy Unknown Verified 03/24/22 16:13 Penicillins Allergy Unknown Verified 03/24/22 16:13 sulfamethoxazole Allergy Unknown Verified 03/24/22 16:13 [From Bactrim] tetracycline [From Sumycin] Allergy Unknown Verified 03/24/22 16:13 Tetracyclines Allergy Unknown Verified 03/24/22 16:13 trimethoprim [From Bactrim] Allergy Unknown Verified 03/24/22 16:13 PFSH Acute PFSH: Medical History High risk medication use Immunization counseling Inflammatory arthritis Lupus Osteoarthritis Osteoporosis Positive PILAR (antinuclear antibody) Post-menopausal Seronegative rheumatoid arthritis of both hands Vitamin B12 deficiency Surgical History H/O: hysterectomy History of tonsillectomy Family History Father Alzheimer disease Mother CAD (coronary artery disease) Social History Smoking and tobacco status: never smoked Quit status (tobacco): has quit using tobacco Year quit tobacco: 20 years ago Vitals/I&O/Wt Last Vital Signs Temp 97.9 F 04/12/22 19:44 Pulse 103 H 04/12/22 19:44 Resp 20 H 04/12/22 19:44 BP 143/103 04/12/22 19:32 Weight last 48 hrs Weight 56.699 kg Physical Exam Narrative: General: -Alert -No acute distress -No dyspnea -No tachypnea Head: -Atraumatic -Normocephalic Eyes: -Pupils equally round and reactive to light and accommodation -Extraocular muscles intact Neurological: -Cranial nerves II-XII intact Neck: -No jugular venous distention -No thyromegaly -No cervical lymphadenopathy Heart: -Regular rate -Regular rhythm -No murmurs -No gallops -No rubs Lungs: -No wheeze -No rhonchi -No rales ? Abdomen: -Normal bowel sounds in all four quadrants -No rebound -No guarding -No tenderness Extremities: -2/4 pulse in all four extremities -No clubbing -No cyanosis -No edema -No calf tenderness present bilaterally -Negative Pablo?s sign bilaterally Musculoskeletal: -5/5 bilateral upper extremity strength -5/5 bilateral lower extremity strength -Sensorium of bilateral upper extremities are equal and intact -Sensorium of bilateral lower extremities are equal and intact ? Additional Details / Additional Findings / Exceptions / Miscellaneous: Urinary Catheter Management: [place]: Cath Placed During This Visit: yes Urinary Catheter Date of Insertion: 04/12/22 Urinary Catheter Time of Insertion: 19:50 Data : 04/12/22 19:30 04/12/22 19:30 Micro: Microbiology 04/12/22 20:13 Blood Culture - Preliminary Blood SPECIMEN COLLECTED 04/12/22 20:06 Blood Culture - Preliminary Blood SPECIMEN COLLECTED A&P Assessment and plan (1) Altered mental status: Status: Acute Plan Encephalopathy. Likely secondary to a urinary tract infection, dehydration, and hypernatremia as a result of dehydration. Neuro checks every 4 hours. Will monitor patient on telemetry and checks her cardiac enzymes Hyponatremia. We will monitor sodium level every 4 hours. IV D5W at 75 ML's per hour History of vitamin B12 deficiency Lupus Osteoarthritis Depression Anxiety Urinary tract infection. Blood culture ?2 drawn the emergency department pending. Urine culture pending. Rocephin 1 g IV daily Elevated troponin. Will monitor patient on telemetry and checks her cardiac enzymes. We will recheck EKG on the morning of April 13, 2022 Primary progressive aphasia Osteoarthritis Rheumatoid arthritis COPD, not O2 dependent GERD Hyper lipemia Michael dementia Acute renal insufficiency. Will monitor creatinine intermittently. IV D5W at 75 ML's per hour Diverticulosis Osteoporosis DVT Proflex is. 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
--- NOTE | 2022-04-12 21:45 | ECG_ITS ---
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 Measurements Intervals Laura Rate: 101 P: 65 MD: 147 QRS: 78 QRSD: 81 T: 59 QT: 349 QTc: 452 Interpretive Statements SINUS TACHYCARDIA Compared to ECG 03/17/2022 18:59:20 No significant changes Electronically Signed On 04-13-2022 20:37:21 CDT by Mele Coppola M.D. [id number]
[2022-04-12] MEDS: cefTRIAXone 1,000 MG in sodium chloride 0.9% (plus) 50 ML 100 MG IV (21:50)
[2022-04-12 22:00] LABS: Troponin 5 2HR 48.78 ng/L (0-10)
[2022-04-12 22:01] LABS: Troponin 5 2HR Delta -1.22 ABS# (0-10)
--- NOTE | 2022-04-12 22:22 | ED_ITS ---
HPI - Altered Mental Status General: Chief Complaint: Altered Mental Status Stated Complaint: AMS Time Seen by Provider: 04/12/22 19:29 Source: EMS History of Present Illness: 76-year-old detention patient. She presents with altered mental status. This was noticed evidently around 1 or 2:00 this afternoon. She has no localizing symptoms. She has had problems with speech. She seems quite anxious she would not obey commands in the ambulance. By hi story, she moves all extremities MD complaint: altered mental status and decreased responsiveness Onset (ago): hour(s) Time: 13:00 Timing confirmed by: caregiver Severity: moderate Consistency of symptoms: Unknown Context: other Associated symptoms: Reports other Review of Systems General: Reports: ROS unobtainable due to medical condition and ROS unobtainable due to mental status PFS ED PFSH: Medical History High risk medication use Immunization counseling Inflammatory arthritis Lupus Osteoarthritis Osteoporosis Positive PILAR (antinuclear antibody) Post-menopausal Seronegative rheumatoid arthritis of both hands Vitamin B12 deficiency Surgical History H/O: hysterectomy History of tonsillectomy Family History Father Alzheimer disease Mother CAD (coronary artery disease) Social History Smoking and tobacco status: never smoked Quit status (tobacco): has quit using tobacco Year quit tobacco: 20 years ago Physical Exam Const: GENERAL APPEARANCE: anxious, ill appearing and frail appearing; not comfortable HENMT: COMMON NORMALS: normocephalic, atraumatic and Normal external nose pres ent HEAD & SCALP: normocephalic and atraumatic FACE & SINUS: face symmetric NOSE: Normal external nose present MOUTH: Abnormal oral and palatal mucosa present (Dry) Eye: COMMON NORMALS: Equal, round and reactive pupils present PUPIL: Yes Equal, round and reactive pupils present OTHER: Small bilaterally Neck/C-Spine: COMMON NORMALS: full ROM Chest: COMMONS NORMALS: normal inspection of the chest CHEST: Yes Symmetrical chest wall rise Resp: COMMON NORMALS: clear to auscultation bilaterally EFFORT & INSPECTION: Yes tachypneic and No uses accessory muscles AUSCULTATION: clear to auscultation bilaterally Cardio: COMMON NORMALS: regular rhythm RATE: tachycardic RHYTHM: regular rhythm GI: COMMON NORMALS: Soft to palpation PALPATION: Yes Soft to palpation Neuro: LISA COMA SCALE: document GCS findings Lisa coma scale eye opening: Spontaneous Lisa coma scale verbal response: Sounds [place] coma scale motor response: Localising [place] coma scale total score: 11 CRANIAL NERVES: Yes CN normal except as noted Skin: GENERAL SKIN EXAM: turgor decreased Urinary Catheter Management: Degroot: Cath Placed During This Visit: yes Urinary Catheter Date of Insertion: 04/12/22 Urinary Catheter Time of Insertion: 19:50 Course Consultations: Consultation #1: margaret Vital Signs: Vital signs: Vital Signs Temperature 97.9 F 04/12/22 19:44 Pulse Rate 87 04/12/22 22:00 Respiratory Rate 19 H 04/12/22 22:00 Blood Pressure 132/77 04/12/22 22:00 MDM - Altered Mental Status Medical Decision Making 76-year-old female with altered mental status. She is clinically very dry. She has a potassium of 3.9, but a sodium of 154. She has a urinary tract infection. She has mild leukocytosis as well. She is tachycardic. She has gotten fluids, and antibiotics. She will be admitted. Lab Data : 04/12/22 19:30 04/12/22 19:30 Radiology Impressions Chest X-Ray 04/12/22 19:42 IMPRESSION: No acute findings. Head CT 04/12/22 19:42 IMPRESSION: No acute intracranial findings. Laboratory Results WBC 10.9 10^3/uL (4.0-10.0) H 04/12/22 19:30 RBC 5.03 10^6/uL (4.1-5.3) 04/12/22 19:30 Hgb 14.6 g/dL (11.5-15.3) 04/12/22 19:30 Hct 48.0 % (37.0-47.0) H 04/12/22 19:30 MCV 95.4 fl (81-99) 04/12/22 19:30 MCH 29.0 pg (28.0-34.0) 04/12/22 19:30 MCHC 30.4 g/dL (30.0-36.0) 04/12/22 19:30 RDW 14.6 % (12.1-15.1) 04/12/22 19: Plt Count 368 10^3/cmm (130-400) 04/12/22 19:30 MPV 10.4 fL (7.4-10.4) 04/12/22 19:30 Neut % (Auto) 66.3 % 04/12/22 19:30 Lymph % (Auto) 20.9 % 04/12/22 19:30 Bee % (Auto) 10.8 % 04/12/22 19:30 Eos % (Auto) 0.5 % 04/12/22 19:30 Baso % (Auto) 0.7 % 04/12/22 19: Neut # (Auto) 7.21 10^3/uL (1.8-7.7) 04/12/22 19: Lymph # (Auto) 2.3 10^3/uL (0.8-4.8) 04/12/22 19:30 Bee # (Auto) 1.2 10^3/uL (0.2-0.9) H 04/12/22 19:30 Eos # (Auto) 0.1 10^3/uL (0.0-0.8) 04/12/22 19: Baso # (Auto) 0.1 10^3/uL (0.0-0.1) 04/12/22 19: Nucleated RBC % (auto) 0 % 04/12/22 19: Nucleated RBCs # 0.0 /100WBC 04/12/22 19:30 Specimen Type Arterial 04/12/22 20:01 Sample Site Brachial, left 04/12/22 20:01 ABG pH 7.41 (7.35-7.45) 04/12/22 20:01 ABG pCO2 37.2 mmHg (35-45) 04/12/22 20:01 ABG pO2 85.4 mmHg (80.0-100.0) 04/12/22 20:01 ABG HCO3 23.3 mmol/L (22-26) 04/12/22 20:01 ABG Base Excess -1.0 mmol/L (-2.0-2.0) 04/12/22 20:01 Brown Test Pos 04/12/22 20:01 Hematocrit 44.2 % (37-47) 04/12/22 20:01 O2 Delivery Device Nc 04/12/22 20:01 O2 Liters/Min 2.0 % 04/12/22 20:01 Scheduling Specialist ID Buttr 04/12/22 20:01 Sodium 154 mmol/L (136-145) H 04/12/22 19:30 Potassium 3.9 mmol/L (3.5-5.1) 04/12/22 19:30 Chloride 117 mmol/L (98-107) H 04/12/22 19:30 Carbon Dioxide 23 mmol/L (22-29) 04/12/22 19:30 Anion Gap 17.9 (5-19) 04/12/22 19:30 BUN 33 mg/dL (8-23) H 04/12/22 19:30 Creatinine 1.2 mg/dL (0.5-0.9) H 04/12/22 19:30 GFR Calculation Not Reportable 04/12/22 19: Glucose 91 mg/dL (65-115) 04/12/22 19:30 Calculated Osmolality 325 mOsm/kg (285-295) H 04/12/22 19:30 Lactate 1.3 mmol/L (0.5-2.2) 04/12/22 20:13 Calcium 9.6 mg/dL (8.5-10.5) 04/12/22 19: Total Bilirubin 0.4 mg/dL (0.15-1.2) 04/12/22 19:30 AST 24 U/L (0-32) 04/12/22 19:30 ALT 37 U/L (0-33) H 04/12/22 19:30 Alkaline Phosphatase 49 IU/L (35-105) 04/12/22 19:30 Troponin T Baseline 50 ng/L (0-10) H 04/12/22 19:30 C-Reactive Protein 9.5 mg/L (0.0-4.9) H 04/12/22 19:30 Total Protein 6.9 g/dL (6.6-8.7) 04/12/22 19:30 Albumin 3.5 g/dL (3.5-5.2) 04/12/22 19:30 Globulin 3.4 g/dL (1.3-4.6) 04/12/22 19:30 Procalcitonin 0.10 ng/mL (0-0.5) 04/12/22 19:30 Urine Color Yellow (Yellow) 04/12/22 19:50 Urine Appearance Clear (CLEAR) 04/12/22 19:50 Urine pH 5 (5-7) 04/12/22 19:50 Ur Specific [place] 1.020 (1.005-1.030) 04/12/22 19:50 Urine Protein 1+ (Negative) H 04/12/22 19:50 Urine Glucose (UA) Norm (Normal) 04/12/22 19:50 Urine Ketones 1+ (Negative) H 04/12/22 19:50 Urine Blood 2+ (Negative) H 04/12/22 19:50 Urine Nitrate Positive (Negative) H 04/12/22 19:50 Urine Bilirubin 1+ (Negative) H 04/12/22 19:50 Urine Urobilinogen 1 mg/dL (Negative) H 04/12/22 19:50 Ur Leukocyte Esterase 1+ (Negative) H 04/12/22 19:50 Urine RBC 5-10 /hpf (0-2) H 04/12/22 19:50 Urine WBC 10-15 /hpf (0-5) H 04/12/22 19:50 Ur Squamous Epith Cells 0-4 /hpf (0-5) H 04/12/22 19:50 Amorphous Sediment Not Reportable 04/12/22 19:50 Urine Bacteria 3+ /hpf (NONE) H 04/12/22 19:50 Urine Mucus 1+ /hpf 04/12/22 19:50 Discharge Plan Discharge Patient Disposition: Admitted As Inpatient Admit Provider: Nikolay Bruce Clinical Impression: UTI (urinary tract infection), Dehydration, Acute hypernatremia Condition: Fair Coding Level of Care Code ED Rug Drying Machine Operator for Chg Fwd Exam Comprehensive
[2022-04-12] MEDS: heparin 5,000 unit/mL INJ 1 mL 5000 UNIT SUBCUT (23:45)
[2022-04-12] MEDS: dextrose 5% 1,000 ML 75 ML IV (23:45)
[2022-04-12 23:57] LABS: Sodium 159 mmol/L (136-145)
--- NOTE | 2022-04-12 23:58 | PC.NURSE ---
Patient arrived to the floor from emergency department and was transferred into bed with two assist full body slide. Patient mumbles but is unable to be understood. Foul scent from mouth noted, oral care provided. Tremors present. Patient does obey some commands such as chemical economist my hands . Mainframe Analyst strength equal. Unable to answer any questions for admission. Records from [place] reviewed by this RN with portions of admission that could be completed done. Currently resting in bed with call light and bedside table in reach, bed in low position with wheels locked and bed alarm activated for patient safety.
[2022-04-13] VITALS (9 sets, daily range): BP systolic 125–154; BP diastolic 68–94; PULSE 65–110; RESP 13–16; TEMP 36.6–36.8; O2SAT 90–100
[2022-04-13 02:49] LABS: Basophils # 0.1 10^3/uL (0.0-0.1); Basophils % 1.2 %; Eosinophils # 0.1 10^3/uL (0.0-0.8); Hematocrit 42.4 % (37.0-47.0); Hemoglobin 12.5 g/dL (11.5-15.3); Lymphocytes # 2.1 10^3/uL (0.8-4.8); Lymphocytes % 23.2 %; Mean Corpuscular HGB Conc 29.5 g/dL (30.0-36.0); Mean Corpuscular Hemoglobin 28.9 pg (28.0-34.0); Mean Corpuscular Volume 97.9 fl (81-99); Mean Platelet Volume 9.9 fL (7.4-10.4); Monocytes # 0.9 10^3/uL (0.2-0.9); Monocytes % 9.6 %; Neutrophils # 5.85 10^3/uL (1.8-7.7); Nucleated Red Blood Cells % 0 %; Platelet Count 288 10^3/cmm (130-400); Red Blood Count 4.33 10^6/uL (4.1-5.3); Red Cell Distribution Width 14.5 % (12.1-15.1); White Blood Count 9.1 10^3/uL (4.0-10.0)
[2022-04-13 03:16] LABS: Troponin 5 6HR 53.31 ng/L (0-10)
[2022-04-13 03:26] LABS: Troponin 5 6HR Delta 3.31 ng/L (0-12)
[2022-04-13 03:39] LABS: Glucose 109 mg/dL (65-115)
[2022-04-13 03:52] LABS: Anion Gap 17.6 (5-19); Blood Urea Nitrogen 28 mg/dL (8-23); Calcium 8.2 mg/dL (8.5-10.5); Carbon Dioxide 20 mmol/L (22-29); Chloride 123 mmol/L (98-107); Osmolality Calculated 330 mOsm/kg (285-295); Potassium 3.6 mmol/L (3.5-5.1); Sodium 157 mmol/L (136-145)
[2022-04-13] MEDS: cefTRIAXone 1,000 MG in sodium chloride 0.9% (plus) 50 ML 100 MG IV (10:11)
--- NOTE | 2022-04-13 10:11 | PM.PN ---
Subjective Subjective: Patient admitted overnight. This morning, she is awake and alert. She responds to physical and verbal stimulation but her speech is garbled and unintelligible. She does not follow commands. Therefore her clinical status markably limits history. She tracks examiner. Medications: Reviewed: Yes Vitals/I&O/Wt Last Vital Signs Temp 98 F 04/13/22 08:00 Pulse 65 04/13/22 08:00 Resp 15 04/13/22 08:00 BP 149/94 04/13/22 08:00 Pulse Ox 90 04/13/22 08:00 04/12/22 04/13/22 04/13/22 22:59 06:59 14:59 Intake Total 1050 / 1050 1000 / 2050 Output Total 400 / 400 Balance 1050 / 1050 600 / 1650 Weight last 48 hrs Weight 58.695 kg Weight 56.699 kg Physical Exam Narrative: General: Patient is awake and alert. Tracks examiner. Head: Normocephalic. Atraumatic. EOM intact. Neck: No JVD. Cardiovascular: RRR. No gallops. 2+ systolic ejection murmur. Hypertensive. No peripheral edema. Lungs: Clear to auscultation, no use of accessory muscles, no crackles or wheezes. Skin: No jaundice. No rashes. Abdomen: Hypoactive bowel sounds, abdomen soft. No guarding. Genito Urinary: Degroot catheter. Extremeties: No cyanosis or clubbing. Musculoskeletal: No swollen or erythematous joints. Neurological: No myoclonus. Moves all 4 extremities. Does not follow commands. Speech is unintelligible. Urinary Catheter Management: Degroot: Cath Placed During This Visit: yes Reason for Continuing Indwelling Catheter: Other Urinary Catheter Date of Insertion: 04/12/22 Urinary Catheter Time of Insertion: 19:50 Data : 04/13/22 02:42 04/13/22 02:42 Micro: Microbiology 04/12/22 20:13 Blood Culture - Preliminary Blood SPECIMEN COLLECTED 04/12/22 20:06 Blood Culture - Preliminary Blood SPECIMEN COLLECTED A&P Assessment and plan (1) Acute hypernatremia: -Associated with hyperchloremia -2/2 severe dehydration -Admission Na 159 with AM repeat at 157 -Free water deficit of 3.2 liters -Continue D5W at 75mL/hr (1800mL in 24 hrs) -Trend Na q4h Status: Acute (2) Dehydration: -Continue IV hydration -Encourage PO intake when mentation improves Status: Acute (3) Altered mental status: -History of Alzheimer's dementia with history of progressive aphasia -Baseline mental status unclear, reportedly lives in assisted living facility in memory unit, so definitely not currently at baseline -AMS 2/2 acute metabolic encephalopathy -Frequent orientation Status: Acute (4) UTI (urinary tract infection): -BCx x2 pending -Follow up Ux -Continue ceftraixone Status: Acute (5) Metabolic acidosis: -NAGMA -Suspect 2/2 GI losses in the setting of recent nausea/emesis -Rehydration Status: Acute (6) Myocardial injury: -EKG reviewed, no NSTEMI or STEMI -Likely stress induced from metabolic derrangements -Telemetry monitoring Status: Acute (7) Lupus: -Continue chronic prednisone therapy Status: Acute (8) Frequent falls: -Fall precautions Status: Acute (9) Alzheimer disease: -Continue home Ativan PRN -Continue home olanzapine Status: Acute (10) Osteoarthritis: Status: Acute (11) Primary progressive aphasia: Status: Acute Plan DVT ppx: Heparin Code: DNR Attestations Medical Necessity Statement*: Patient continues to have persistent altered mental status with severe hypernatremia requiring ongoing hospitalization for IV fluids and serial lab monitoring Coding Level of Care Code Acute Metallurgical Specialist for g Fwd Diagnoses Acute hypernatremia E87.0 Altered mental status R41.82 Metabolic acidosis E87.2 Myocardial injury I5A Alzheimer disease G30.9; F02.80 Lupus M32.9 Osteoarthritis M19.90 Primary progressive aphasia G31.01; F02.80 UTI (urinary tract infection) N39.0 Frequent falls R29.6 Dehydration E86.0
--- NOTE | 2022-04-13 10:43 | PC.PHAR ---
Addendum entered by Nat Rodrigues 04/13/22 17:05: Made contact with [facility] at 1623 and MAR was faxed over. Med list updated. MAR states pt takes Prednisone 10mg PRN For Flares Addendum entered by Nat Rodrigues 04/13/22 16:14: attempted to call [facility] for pt MAR at 1613 with no answer. Left voicemail. Addendum entered by Nat Rodrigues 04/13/22 12:11: ATTEMPTED TO CALL [facility] FOR PT MAR AT 1209 WITH NO ANSWER. ATTEMPTED NUMBER [phone] AND [phone] Addendum entered by Nat Rodrigues 04/13/22 11:33: ATTEMPTED TO CALL [facility] FOR PT MAR AT 1133 WITH NO ANSWER. Addendum entered by Nat Rodrigues 04/13/22 10:49: Attempted to call [facility] for patient MAR at 1048 with no answer. Original Note: Attempted to call [facility] twice at 1043 for patient MAR with no answer.
[2022-04-13] MEDS: heparin 5,000 unit/mL INJ 1 mL 5000 UNIT SUBCUT ×2 (12:32→23:09)
[2022-04-13] MEDS: dextrose 5% 1,000 ML 75 ML IV (12:33)
[2022-04-13 14:15] LABS: Sodium 149 mmol/L (136-145)
[2022-04-13 18:10] LABS: Sodium 145 mmol/L (136-145)
[2022-04-13] MEDS: OLANZapine 10 mg TABLET 5 MG PO (19:49)
[2022-04-13 23:08] LABS: Sodium 142 mmol/L (136-145)
[2022-04-14] VITALS (10 sets, daily range): BP systolic 115–147; BP diastolic 63–84; PULSE 58–96; RESP 16–18; TEMP 36.4–36.7; O2SAT 93–98
[2022-04-14 03:25] LABS: Basophils # 0.1 10^3/uL (0.0-0.1); Eosinophils # 0.3 10^3/uL (0.0-0.8); Eosinophils % 3.3 %; Hematocrit 44.1 % (37.0-47.0); Hemoglobin 13.9 g/dL (11.5-15.3); Lymphocytes # 1.8 10^3/uL (0.8-4.8); Mean Corpuscular HGB Conc 31.5 g/dL (30.0-36.0); Mean Corpuscular Hemoglobin 29.1 pg (28.0-34.0); Mean Corpuscular Volume 92.5 fl (81-99); Mean Platelet Volume 9.9 fL (7.4-10.4); Monocytes # 0.7 10^3/uL (0.2-0.9); Neutrophils # 5.96 10^3/uL (1.8-7.7); Neutrophils % 66.4 %; Nucleated Red Blood Cells % 0 %; Platelet Count 242 10^3/cmm (130-400); Red Blood Count 4.77 10^6/uL (4.1-5.3); Red Cell Distribution Width 14.1 % (12.1-15.1)
[2022-04-14 03:46] LABS: Albumin Level 3.2 g/dL (3.5-5.2); Blood Urea Nitrogen 15 mg/dL (8-23); Calcium 8.6 mg/dL (8.5-10.5); Carbon Dioxide 26 mmol/L (22-29); Chloride 109 mmol/L (98-107); Glucose 105 mg/dL (65-115); Magnesium 1.6 mg/dL (1.7-2.3); Phosphorus 2.2 mg/dL (2.5-4.5); Sodium 144 mmol/L (136-145)
[2022-04-14 07:45] LABS: Sodium 143 mmol/L (136-145)
--- NOTE | 2022-04-14 09:47 | PM.PN ---
Subjective Subjective: Kate awakens briefly, and answer some one-word questions but seems confused. She quickly goes back to sleep when not stimulated. She answers yes to many questions unreliably. Medications: Reviewed: Yes Vitals/I&O/Wt Last Vital Signs Temp 97.6 F 04/14/22 07:52 Pulse 84 04/14/22 07:52 Resp 16 04/14/22 07:52 BP 147/74 04/14/22 07:52 Pulse Ox 97 04/14/22 07:52 04/13/22 04/14/22 04/14/22 22:59 06:59 14:59 Intake Total 461.583 / 1471.583 538.417 / 538.417 Output Total 0 / 0 750 / 750 Balance 461.583 / 1471.583 -750 / 721.583 538.417 / 538.417 Weight last 48 hrs Weight 58.695 kg Weight 56.699 kg Physical Exam Narrative: General exam is a confused white female, who returns to sleep quickly after being stimulated Neck is supple no lymphadenopathy thyromegaly Cardiovascular regular rate and rhythm without murmur Lungs clear no wheezing or crackles Abdomen is soft, positive bowel sounds. No obvious organomegaly Extremities no cyanosis clubbing or edema Neuro no obvious focal deficits Urinary Catheter Management: Degroot: Cath Placed During This Visit: yes Reason for Continuing Indwelling Catheter: Other Urinary Catheter Date of Insertion: 04/12/22 Urinary Catheter Time of Insertion: 19:50 Data : 04/14/22 03:15 04/14/22 07:00 Other Labs: Urine culture is growing gram-negative rods Micro: Microbiology 04/12/22 19:50 Urine Culture - Preliminary Urine Catheterized Gram Negative Rods 04/12/22 20:13 Blood Culture - Preliminary Blood NEGATIVE TO DATE 04/12/22 20:06 Blood Culture - Preliminary Blood NEGATIVE TO DATE A&P Assessment and plan (1) Acute encephalopathy: Acute encephalopathy, superimposed on chronic dementia, thought to be secondary to hypernatremia and UTI present on admission. She is improved, but does not appear to be at baseline. Secondary to some lethargy noted this morning we will discontinue Ativan which is listed as needed(although she has not had a dose), as well as Zyprexa which is ordered twice daily which she did have last night. Status: Acute (2) UTI (urinary tract infection): Currently on ceftriaxone. Urine culture growing gram-negative rods. Hopefully will have sensitivities today. Status: Acute (3) Acute hypernatremia: Hypernatremia has resolved with D5W. Change to half-normal saline at 75 cc an hour. Continue to monitor electrolytes daily. Status: Acute (4) Dehydration: Resolved Status: Acute (5) Alzheimer disease: Has known significant severe dementia, with aphasia. She is currently residing in an assisted living, but may need nursing facility placements. Will discuss with her family today regarding overall treatment plan. We will have them come into the hospital to evaluate her to determine if she is nearing her baseline. Status: Acute (6) Lupus: Continue chronic steroids secondary to lupus Status: Acute Plan Other medical problems as noted in her past medical history Hypokalemia, supplement Hypomagnesemia. 2 g of magnesium IV. Allow natural Heparin for DVT prophylaxis Attestations Medical Necessity Statement*: Needs continued hospitalization secondary to persistent encephalopathy. Will discuss with discharge planning if a assisted environment is more appropriate for her at this stage. Awaiting cultures to determine best antibiotic at discharge. Coding Level of Care Code Acute Lan Administrator for g Fwd Diagnoses Acute encephalopathy G93.40 UTI (urinary tract infection) N39.0 Acute hypernatremia E87.0 Dehydration E86.0 Alzheimer disease G30.9; F02.80 Lupus M32.9
[2022-04-14] MEDS: sodium chloride 0.45% 1,000 ML 75 ML IV ×2 (09:51→23:13)
[2022-04-14] MEDS: cefTRIAXone 1,000 MG in sodium chloride 0.9% (plus) 50 ML 100 MG IV (09:52)
--- NOTE | 2022-04-14 09:56 | PC.CHAP ---
Pastoral Care Encounter/Spiritual Assessment Type of Contact [] Declined rn progressive care unit visit [] Patient/Family/Request visit [] Outpatient visit [] Follow-up visit [] Physician referral [] Code/Alert [x] Routine visit [] Staff referral [] Actively dying [x] Patient sleeping [] Family support [] [] Out of room [] Palliative care [] [] Receiving care in room [] Pre-surgical visit [] Trauma [] Long length of stay [] ICU visit [] Other: Relational/Emotional Strength [] Patient feels connected with others/family/visitors/staff [] Distress [] Loneliness/isolation [] Abandonment Spirituality of Patient [] Person of Angelique [] Attends Restorationism of their Angelique [] Believes in Prayer [] Reads Bible or Gnosticism materials [] There are Spiritual issues to be addressed Wastewater Design Engineer Interventions [] Prayer [] Active listening [] Non-anxious presence [] Spiritual/emotional support [] Crisis/trauma care [] Spiritual counseling [] Bereavement support [] Provided bereavement packet [] Provided Bible/devotional materials [] Provided toy/stuffed animal, coloring book to patient or family member [] Provided Communion [] Anointing/[place] [] Salvation [] Completed spiritual assessment [] Other: Impact on Illness or Injury [] Angry [] Fearful [] Anxious [] Often cries [] Exhaustion [] Unable to work [] Unable to attend taoism [] Unable to walk/stand [] Unable to read [] Unable to drive [] Unable to eat/drink [] Unable to sleep [] Unable to be with family [] Patient intubated [] Other: Summary Time spent with patient
[2022-04-14] MEDS: magnesium sulfate premix 2 GM/50 ML PIGGYBACK IV (11:02)
[2022-04-14] MEDS: heparin 5,000 unit/mL INJ 1 mL 5000 UNIT SUBCUT ×2 (12:30→23:13)
[2022-04-15] VITALS: BP 136/81; PULSE 64; RESP 14; TEMP 36.6; O2SAT 97
[2022-04-15 04:00] VITALS: BP 144/85; PULSE 66; RESP 18; TEMP 36.9; O2SAT 95
[2022-04-15 05:20] VITALS: PULSE 87
[2022-04-15 08:00] VITALS: BP 147/89; PULSE 84; RESP 16; TEMP 37.2; O2SAT 98
--- NOTE | 2022-04-15 08:29 | PC.SOCIAL ---
IMM Update Pg. 2 of IMM updated and reviewed with patient's , who verbalized understanding. Copy provided.
[2022-04-15] MEDS: cefTRIAXone 1,000 MG in sodium chloride 0.9% (plus) 50 ML 100 MG IV (09:30)
[2022-04-15] MEDS: citalopram 20 mg Tablet 40 MG PO (09:32)
[2022-04-15] MEDS: OLANZapine 5 mg TABLET 2.5 MG PO (09:32)
[2022-04-15] MEDS: predniSONE 5 mg Tablet PO (09:33)
[2022-04-15] MEDS: pantoprazole DR 40 mg Tablet PO (09:33)
[2022-04-15 10:06] LABS: Basophils # 0.1 10^3/uL (0.0-0.1); Basophils % 0.8 %; Eosinophils # 0.1 10^3/uL (0.0-0.8); Eosinophils % 0.9 %; Hematocrit 46.7 % (37.0-47.0); Hemoglobin 15.1 g/dL (11.5-15.3); Lymphocytes # 1.7 10^3/uL (0.8-4.8); Lymphocytes % 15.7 %; Mean Corpuscular HGB Conc 32.3 g/dL (30.0-36.0); Mean Corpuscular Hemoglobin 29.3 pg (28.0-34.0); Mean Corpuscular Volume 90.7 fl (81-99); Mean Platelet Volume 10.7 fL (7.4-10.4); Monocytes # 0.8 10^3/uL (0.2-0.9); Monocytes % 7.3 %; Neutrophils # 7.62 10^3/uL (1.8-7.7); Neutrophils % 72.6 %; Nucleated Red Blood Cells % 0 %; Platelet Count 254 10^3/cmm (130-400); Red Blood Count 5.15 10^6/uL (4.1-5.3); White Blood Count 10.5 10^3/uL (4.0-10.0)
--- NOTE | 2022-04-15 10:26 | P.DS_ITS ---
Discharge Providers Date of Admission: 04/12/22 21:31 Date of Discharge: April 15, 2022 Attending Provider at Admission: Nikolay Bruce DO Attending Provider at Discharge: Lukas Mauricio MD Primary Care Provider: Jonn Biggs DO Diagnoses at Discharge Discharge Diagnosis (1) Acute encephalopathy: Status: Acute (2) UTI (urinary tract infection): Status: Acute (3) Acute hypernatremia: Status: Acute (4) Dehydration: Status: Acute (5) Alzheimer disease: Status: Acute (6) Lupus: Status: Acute Reason for Visit Reason for Visit: AMS Hospital Course Hospital Course Kate is a 76-year-old white female, with severe underlying dementia who prese nted from [facility]. She was diagnosed with acute encephalopathy, urinary tract infection. She was also found to be dehydrated with an elevated sodium. She received IV fluids, IV antibiotics in the form of ceftriaxone. Her Zyprexa dosing was reduced. With these measures her encephalopathy resolved. Urine grew E. coli sensitive to ceftriaxone. Abdominal pelvis CT was done while in the hospital, demonstrating no obstruction or ureterolithiasis. Head CT was also performed which was negative. On April 15, it was thought she is stabilized and if she could be discharged from the hospital. She appeared to be in stable condition at that time. I had visited with her regarding her hospital stay, and plans for discharge the day previous. Questions were answered. Physical Exam Narrative: General exam no distress Neck is supple Cardiovascular regular rate and rhythm without murmur Lungs clear Abdomen is soft with positive bowel sounds Extremities no cyanosis clubbing or edema Urinary Catheter Management: Degroot: Cath Placed During This Visit: yes Reason for Continuing Indwelling Catheter: Other Urinary Catheter Date of Insertion: 04/12/22 Urinary Catheter Time of Insertion: 19:50 Discharge Data Studies Completed and Pending Completed Studies During Hospitalization Category Date Time Status CT head wo con* [id number] Urgent Cat Scan 04/12/22 19:42 Completed XR chest 1V portable [id number] Urgent Exams 04/12/22 19:42 Completed Pending at discharge Category Date Time Status BMP [Basic Metabolic Panel] AM LABS Lab 04/15/22 09:30 Received Blood Culture Stat Lab 04/12/22 20:13 Results Magnesium AM LABS Lab 04/15/22 09:30 Received Radiology Impressions Chest X-Ray 04/12/22 19:42 IMPRESSION: No acute findings. Head CT 04/12/22 19:42 IMPRESSION: No acute intracranial findings. Laboratory Results WBC 10.5 10^3/uL (4.0-10.0) H 04/15/22 09:30 RBC 5.15 10^6/uL (4.1-5.3) 04/15/22 09:30 Hgb 15.1 g/dL (11.5-15.3) 04/15/22 09:30 Hct 46.7 % (37.0-47.0) 04/15/22 09:30 MCV 90.7 fl (81-99) 04/15/22 09:30 MCH 29.3 pg (28.0-34.0) 04/15/22 09:30 MCHC 32.3 g/dL (30.0-36.0) 04/15/22 09:30 RDW 14.0 % (12.1-15.1) 04/15/22 09:30 Plt Count 254 10^3/cmm (130-400) 04/15/22 09:30 MPV 10.7 fL (7.4-10.4) H 04/15/22 09:30 Neut % (Auto) 72.6 % 04/15/22 09:30 Lymph % (Auto) 15.7 % 04/15/22 09:30 Bartholomew % (Auto) 7.3 % 04/15/22 09:30 Eos % (Auto) 0.9 % 04/15/22 09:30 Baso % (Auto) 0.8 % 04/15/22 09:30 Neut # (Auto) 7.62 10^3/uL (1.8-7.7) 04/15/22 09:30 Lymph # (Auto) 1.7 10^3/uL (0.8-4.8) 04/15/22 09:30 Bartholomew # (Auto) 0.8 10^3/uL (0.2-0.9) 04/15/22 09:30 Eos # (Auto) 0.1 10^3/uL (0.0-0.8) 04/15/22 09:30 Baso # (Auto) 0.1 10^3/uL (0.0-0.1) 04/15/22 09:30 Nucleated RBC % (auto) 0 % 04/15/22 09:30 Nucleated RBCs # 0.0 /100WBC 04/15/22 09:30 Specimen Type Arterial 04/12/22 20:01 Sample Site Brachial, left 04/12/22 20:01 ABG pH 7.41 (7.35-7.45) 04/12/22 20:01 ABG pCO2 37.2 mmHg (35-45) 04/12/22 20:01 ABG pO2 85.4 mmHg (80.0-100.0) 04/12/22 20:01 ABG HCO3 23.3 mmol/L (22-26) 04/12/22 20:01 ABG Base Excess -1.0 mmol/L (-2.0-2.0) 04/12/22 20:01 Brown Test Pos 04/12/22 20:01 Hematocrit 44.2 % (37-47) 04/12/22 20:01 O2 Delivery Device Nc 04/12/22 20:01 O2 Liters/Min 2.0 % 04/12/22 20:01 [employer] ID Buttr 04/12/22 20:01 Sodium 143 mmol/L (136-145) 04/14/22 07:00 Sodium Cancelled 04/14/22 07:00 Potassium 3.0 mmol/L (3.5-5.1) L 04/14/22 03:15 Chloride 109 mmol/L (98-107) H 04/14/22 03:15 Carbon Dioxide 26 mmol/L (22-29) 04/14/22 03:15 Anion Gap 12.0 (5-19) 04/14/22 03:15 BUN 15 mg/dL (8-23) 04/14/22 03:15 Creatinine 0.8 mg/dL (0.5-0.9) 04/14/22 03:15 GFR Calculation Not Reportable 04/14/22 03:15 Glucose 105 mg/dL (65-115) 04/14/22 03:15 Calculated Osmolality 330 mOsm/kg (285-295) H 04/13/22 02:42 Lactate 1.3 mmol/L (0.5-2.2) 04/12/22 20:13 Calcium 8.6 mg/dL (8.5-10.5) 04/14/22 03:15 Phosphorus 2.2 mg/dL (2.5-4.5) L 04/14/22 03:15 Magnesium 1.6 mg/dL (1.7-2.3) L 04/14/22 03:15 Total Bilirubin 0.4 mg/dL (0.15-1.2) 04/12/22 19:30 AST 24 U/L (0-32) 04/12/22 19:30 ALT 37 U/L (0-33) H 04/12/22 19:30 Alkaline Phosphatase 49 IU/L (35-105) 04/12/22 19:30 Troponin T Baseline 50 ng/L (0-10) H 04/12/22 19:30 Troponin T 120 Minute 48.78 ng/L (0-10) H 04/12/22 21:39 Delta Troponin T -1.22 ABS# (0-10) L 04/12/22 21:39 Troponin T Hi Sens 6Hr 53.31 ng/L (0-10) H 04/13/22 02:42 Troponin T Hi Sens 6Hr Delta 3.31 ng/L (0-12) 04/13/22 02:42 C-Reactive Protein 9.5 mg/L (0.0-4.9) H 04/12/22 19:30 Total Protein 6.9 g/dL (6.6-8.7) 04/12/22 19:30 Albumin 3.2 g/dL (3.5-5.2) L 04/14/22 03:15 Globulin 3.4 g/dL (1.3-4.6) 04/12/22 19:30 Procalcitonin 0.10 ng/mL (0-0.5) 04/12/22 19:30 Urine Color Yellow (Yellow) 04/12/22 19:50 Urine Appearance Clear (CLEAR) 04/12/22 19:50 Urine pH 5 (5-7) 04/12/22 19:50 Ur Specific [place] 1.020 (1.005-1.030) 04/12/22 19:50 Urine Protein 1+ (Negative) H 04/12/22 19:50 Urine Glucose (UA) Norm (Normal) 04/12/22 19:50 Urine Ketones 1+ (Negative) H 04/12/22 19:50 Urine Blood 2+ (Negative) H 04/12/22 19:50 Urine Nitrate Positive (Negative) H 04/12/22 19:50 Urine Bilirubin 1+ (Negative) H 04/12/22 19:50 Urine Urobilinogen 1 mg/dL (Negative) H 04/12/22 19:50 Ur Leukocyte Esterase 1+ (Negative) H 04/12/22 19:50 Urine RBC 5-10 /hpf (0-2) H 04/12/22 19:50 Urine WBC 10-15 /hpf (0-5) H 04/12/22 19:50 Ur Squamous Epith Cells 0-4 /hpf (0-5) H 04/12/22 19:50 Amorphous Sediment Not Reportable 04/12/22 19:50 Urine Bacteria 3+ /hpf (NONE) H 04/12/22 19:50 Urine Mucus 1+ /hpf 04/12/22 19:50 Vitals Last Vital Signs Temp 98.9 F 04/15/22 08:00 Pulse 84 04/15/22 08:00 Resp 16 04/15/22 08:00 BP 147/89 04/15/22 08:00 Pulse Ox 98 04/15/22 08:00 Discharge Plan Discharge Patient Disposition: Xfer SNF Condition: Fair Prescriptions: New olanzapine 5 mg Tablet 2.5 mg PO BID Qty: 30 0RF cefdinir 300 mg capsule 300 mg PO Q12H 5 Days Qty: 10 0RF Continued pantoprazole 40 mg tablet,delayed release (DR/EC) 40 mg PO DAILY@08 Qty: 30 3RF Rx Instructions: 30 minutes before meal Humira Pen 40 mg/0.8 mL pen injector kit 40 mg SUBCUT Q14D Qty: 2 3RF prednisone 10 mg tablet 10 mg PO DAILY PRN (Reason: for flares) Qty: 30 0RF citalopram [Celexa] 40 mg Tablet 40 mg PO DAILY@08 0RF cyanocobalamin (vitamin B-12) 1,000 mcg/mL solution 1,000 mcg IM Q30D 0RF ondansetron 4 mg tablet,disintegrating 4 mg PO BID PRN (Reason: nausea and vomiting) Qty: 10 0RF acetaminophen 325 mg Tablet 650 mg PO Q6H PRN (Reason: Mild-moderate headache,..) 0RF Rx Instructions: musculoskeletal pain or fever >100degrees. NTE 3GM/24hours from all sources. magnesium hydroxide [Milk of Magnesia] 400 mg/5 mL Suspension 400 mg PO DAILY PRN (Reason: Constipation) 0RF Rx Instructions: If no bm in 3 days. If no bm in 12 hours after MOM was given, give bisacodyl suppository per order. bisacodyl 10 mg Suppository 10 mg IA DAILY PRN (Reason: Constipation not relieved by..) 0RF Rx Instructions: MOM. If no bm in 12hours, call licensed nurse. folic acid 1 mg Tablet 1 mg PO DAILY 0RF alum-mag hydroxide-simeth [Mylanta] 200-200-20 mg/5 mL Suspension 30 ml PO Q4H PRN (Reason: Upset stomach or heartburn.) 0RF Rx Instructions: Notify MD if 4 doses or more are taken within 24hr period or has fever, abd pain, or bloody stool. prednisone 5 mg Tablet 10 mg PO DAILY 0RF loperamide 2 mg Tablet 2 mg PO . DIRECTED PRN (Reason: Diarrhea) 0RF Rx Instructions: administer 2 tabs after first loose stool until symptoms controlled; 1 tablet after each loose stool methotrexate sodium 2.5 mg Tablet 15 mg PO Q7D 0RF Rx Instructions: On Fridays Discontinued lorazepam [Ativan] 0.5 mg tablet 0.5 mg PO TID PRN (Reason: anxiety) 0RF olanzapine 10 mg tablet 5 mg PO BID@,20 0RF Discharge Orders: Discharge Order (Routine); Ordered 04/15/22 Ordered By: Lukas Mauricio Referrals: Jonn Biggs DO [Primary Care Provider] - 4-7 days (BMP on follow-up) Discharge Diet: Usual diet Discharge Activity: Increase activity as tolerated Activity Restrictions/Additional Instructions: Take all medicine as prescribed Monitor behavior closely. Note that Zyprexa has been decreased. Ativan discontinued Encourage p.o. intake Return for any concerns. Discharge Attestations Time Spent in Discharge Care*: greater than 30 min Quality Metrics Clinical Quality Measures [ No reported AMI, CVA or VTE this stay] Coding Level of Care Code Acute Chg FW DC note Diagnoses Acute encephalopathy G93.40 UTI (urinary tract infection) N39.0 Acute hypernatremia E87.0 Dehydration E86.0 Alzheimer disease G30.9; F02.80 Lupus M32.9
[2022-04-15 11:02] LABS: Anion Gap 18.4 (5-19); Blood Urea Nitrogen 10 mg/dL (8-23); Calcium 8.1 mg/dL (8.5-10.5); Carbon Dioxide 21 mmol/L (22-29); Chloride 105 mmol/L (98-107); Glucose 83 mg/dL (65-115); Magnesium 1.9 mg/dL (1.7-2.3); Osmolality Calculated 290 mOsm/kg (285-295); Potassium 3.4 mmol/L (3.5-5.1); Sodium 141 mmol/L (136-145)
[2022-04-15 12:00] VITALS: BP 147/89; PULSE 84; RESP 16; TEMP 37.2
[2022-04-15] MEDS: heparin 5,000 unit/mL INJ 1 mL 5000 UNIT SUBCUT (12:19)
== END 2022-04-15 03:00 | disposition home or self-care (01) | DRG 689 ==
LOC: ER 20:36 → MEDSURG 21:58
PROVIDERS: Internal Medicine; Admitting Provider Internal Medicine; Emergency Provider Emergency Medicine; PCP Family Medicine; Visit Provider Internal Medicine
DX: N39.0 Urinary tract infection, site not specified (principal); G93.41 Metabolic encephalopathy; E87.0 Hyperosmolality and hypernatremia; F02.80 Dementia in other diseases classified elsewhere, unspecified severity, without behavioral disturbance, psychotic disturbance, mood disturbance, and anxiety; G30.9 Alzheimer's disease, unspecified; M32.9 Systemic lupus erythematosus, unspecified; E86.0 Dehydration; B96.20 Unspecified Escherichia coli [E. coli] as the cause of diseases classified elsewhere; Z79.52 Long term (current) use of systemic steroids; G31.01 Pick's disease; F32.A Depression, unspecified; F41.9 Anxiety disorder, unspecified; E83.42 Hypomagnesemia; K21.9 Gastro-esophageal reflux disease without esophagitis; J44.9 Chronic obstructive pulmonary disease, unspecified
CPT/HCPCS: 36415; 36600; 51702; 70450; 71045; 80048; 80053; 80069; 81001; 82803; 83605; 83735; 84145; 84295; 84484; 85025; 86140; 87040; 87077; 87086; 87186; 93005; 96361; 96365; 96372; 99285; J0696; J1644; J3475; J7030; J7512

== ENCOUNTER 2022-04-21 18:03 | Emergency (ER) | payer MEDICARE, SELFPAY ==
[2022-04-21 18:09] VITALS: BP 147/80; PULSE 79; RESP 14; TEMP 36.8; O2SAT 99
--- NOTE | 2022-04-21 18:22 | ED_ITS ---
HPI - Fall General: Chief Complaint: Fall Stated Complaint: FALL, HEMATOMA Time Seen by Provider: 04/21/22 18:22 History of Present Illness: 76-year-old female patient comes from [facility]. Patient is a chronic dementia patient that got out of bed and fell. Patient has a hematoma to the occipital scalp. Nursing staff reported that patient had complained of some neck discomfort. Patient is alert and responds to questioning. Patient is alert to self only. Associated symptoms-after fall: Reports neck pain Review of Systems General: Reports: 10 or more systems reviewed and unremarkable except in HPI and below Const: Denies: fever(s) Resp: Denies: dyspnea Musc: Reports: neck pain Skin/Breast: Reports: other (Contusion scalp) PFS ED PFSH: Medical History High risk medication use Immunization counseling Inflammatory arthritis Lupus Osteoarthritis Osteoporosis Positive PILAR (antinuclear antibody) Post-menopausal Seronegative rheumatoid arthritis of both hands Vitamin B12 deficiency Surgical History H/O: hysterectomy History of tonsillectomy Family History Father Alzheimer disease Mother CAD (coronary artery disease) Social History Smoking and tobacco status: never smoked Quit status (tobacco): has quit using tobacco Year quit tobacco: 20 years ago Physical Exam Const: COMMON NORMALS: alert HENMT: COMMON NORMALS: normocephalic (Hematoma scalp) HEAD & SCALP: normocephalic (Hematoma scalp) Neck/C-Spine: COMMON NORMALS: full ROM Chest: COMMONS NORMALS: normal inspection of the chest Resp: COMMON NORMALS: normal respiratory effort Cardio: COMMON NORMALS: regular rate RATE: regular rate Extremity: COMMON NORMALS: normal to inspection Neuro: SENSORIUM/ORIENTATION: Yes alert Skin: COMMON NORMALS: turgor normal GENERAL SKIN EXAM: turgor normal Course Vital Signs: Vital signs: Vital Signs Temperature 98.3 F 04/21/22 18:40 Pulse Rate 79 04/21/22 18:40 Respiratory Rate 14 04/21/22 18:40 Blood Pressure 147/80 06/06/22 18:40 Pulse Oximetry 99 04/21/22 18:40 MDM - Fall Medical Decision Making Patient was brought in by EMS from [facility] for evaluation after a fall. Patient has a hematoma to the occipital scalp. Patient made complaints of neck pain. Patient is alert to self answers some questions. Exam notes mild hematoma to the occipital scalp. Pupils are equal and reactive. Abdomen soft nontender. Chest wall is nontender. Moves all extremities well. Differential diagnosis includes skull fracture, hematoma, intracranial bleeding. CT of the head and cervical spine indicated no fractures or intracranial bleeding. [facility] Lab Data Radiology Impressions Cervical Spine CT 04/21/22 18:23 IMPRESSION: Negative for fracture or dislocation Head CT 04/21/22 18:23 IMPRESSION: 1. Negative for intracranial hemorrhage or mass effect. 2. Mild diffuse white matter disease likely reflecting chronic microvascular ischemic changes. 3. Stable diffuse ventricular prominence may be related to underlying parenchymal atrophy. Discharge Plan Discharge Patient Disposition: Home Clinical Impression: Alzheimer disease, Acute neck pain Fall Qualifiers: Encounter type: initial encounter Qualified Code(s): W19.XXXA - Unspecified fall, initial encounter Condition: Stable Prescriptions: No Action pantoprazole 40 mg tablet,delayed release (DR/EC) 40 mg PO DAILY@08 Qty: 30 3RF Rx Instructions: 30 minutes before meal Humira Pen 40 mg/0.8 mL pen injector kit 40 mg SUBCUT Q14D Qty: 2 3RF prednisone 10 mg tablet 10 mg PO DAILY PRN (Reason: for flares) Qty: 30 0RF citalopram [Celexa] 40 mg Tablet 40 mg PO DAILY@08 0RF cyanocobalamin (vitamin B-12) 1,000 mcg/mL solution 1,000 mcg IM Q30D 0RF ondansetron 4 mg tablet,disintegrating 4 mg PO BID PRN (Reason: nausea and vomiting) Qty: 10 0RF acetaminophen 325 mg Tablet 650 mg PO Q6H PRN (Reason: Mild-moderate headache,..) 0RF Rx Instructions: musculoskeletal pain or fever >100degrees. NTE 3GM/24hours from all sources. magnesium hydroxide [Milk of Magnesia] 400 mg/5 mL Suspension 400 mg PO DAILY PRN (Reason: Constipation) 0RF Rx Instructions: If no bm in 3 days. If no bm in 12 hours after MOM was given, give bisacodyl suppository per order. bisacodyl 10 mg Suppository 10 mg AR DAILY PRN (Reason: Constipation not relieved by..) 0RF Rx Instructions: MOM. If no bm in 12hours, call licensed nurse. folic acid 1 mg Tablet 1 mg PO DAILY 0RF alum-mag hydroxide-simeth 200-200-20 mg/5 mL Suspension 30 ml PO Q4H PRN (Reason: Upset stomach or heartburn.) 0RF Rx Instructions: Notify MD if 4 doses or more are taken within 24hr period or has fever, abd pain, or bloody stool. prednisone 5 mg Tablet 10 mg PO DAILY 0RF loperamide 2 mg Tablet 2 mg PO . DIRECTED PRN (Reason: Diarrhea) 0RF Rx Instructions: administer 2 tabs after first loose stool until symptoms controlled; 1 tablet after each loose stool olanzapine 5 mg Tablet 2.5 mg PO BID Qty: 30 0RF Discharge Orders: Discharge ED (Routine); Ordered 04/21/22 Ordered By: Ata Guerrier Referrals: Jonn Biggs DO [Primary Care Provider] - Patient Instructions: Head Injury (ED) Activity Restrictions/Additional Instructions: Continue with routine care. Acetaminophen as needed for pain. Follow-up with primary care for further instructions. Coding Level of Care Code ED [employer] for [employer] Fwd Exam Comprehensive
--- NOTE | 2022-04-21 18:23 | CTR_ITS ---
PROCEDURE INFORMATION: Exam: CT Cervical Spine Without Contrast Exam date and time: 04/21/2022 6:39 PM Age: 76 years old Clinical indication: Injury or trauma; Fall; Blunt trauma; Additional info: Fall injury TECHNIQUE: Imaging protocol: Computed tomography images of the cervical spine without contrast. Radiation optimization: All CT scans at this facility use at least one of these dose optimization techniques: automated exposure control; mA and/or kV adjustment per patient size (includes targeted exams where dose is matched to clinical indication); or iterative reconstruction. COMPARISON: CT cervical spin wo con* [id number] 03/17/2022 5:26 PM RADIATION DOSE METRICS: Total DLP (mGy-cm): 252.28 FINDINGS: Bones/joints: No acute fracture. Normal alignment. C2-C3: No significant disc protrusion. No severe spinal canal stenosis. No significant neural foraminal narrowing. C3-C4: No significant disc protrusion. No severe spinal canal stenosis. No significant neural foraminal narrowing. C4-C5: No significant disc protrusion. No severe spinal canal stenosis. No significant neural foraminal narrowing. C5-C6: No significant disc protrusion. No severe spinal canal stenosis. No significant neural foraminal narrowing. C6-C7: No significant disc protrusion. No severe spinal canal stenosis. No significant neural foraminal narrowing. C7-T1: No significant disc protrusion. No severe spinal canal stenosis. No significant neural foraminal narrowing. Lungs: Emphysematous changes. Soft tissues: Unremarkable. CT/CT cervical spin wo con* [id number] IMPRESSION: Negative for fracture or dislocation
--- NOTE | 2022-04-21 18:23 | CTR_ITS ---
PROCEDURE INFORMATION: Exam: CT Head Without Contrast Exam date and time: 04/21/2022 6:34 PM Age: 76 years old Clinical indication: Injury or trauma; Fall; Concussion/head injury; Patient HX: Hematoma on the back of head TECHNIQUE: Imaging protocol: Computed tomography of the head without contrast. Radiation optimization: All CT scans at this facility use at least one of these dose optimization techniques: automated exposure control; mA and/or kV adjustment per patient size (includes targeted exams where dose is matched to clinical indication); or iterative reconstruction. COMPARISON: CT head wo con* [id number] 04/12/2022 8:20 PM RADIATION DOSE METRICS: Total DLP (mGy-cm): 717.46 FINDINGS: Brain: Mild diffuse white matter disease likely reflecting chronic microvascular ischemic changes. Cerebral ventricles: Stable diffuse ventricular prominence may be related to underlying parenchymal atrophy. Paranasal sinuses: Visualized sinuses are unremarkable. No fluid levels. Mastoid air cells: Visualized mastoid air cells are well aerated. Bones/joints: Unremarkable. No acute fracture. Soft tissues: Unremarkable. CT/CT head wo con* [id number] IMPRESSION: 1. Negative for intracranial hemorrhage or mass effect. 2. Mild diffuse white matter disease likely reflecting chronic microvascular ischemic changes. 3. Stable diffuse ventricular prominence may be related to underlying parenchymal atrophy.
[2022-04-21 18:40] VITALS: BP 147/80; PULSE 79; RESP 14; TEMP 36.8; O2SAT 99
[2022-04-21 20:35] VITALS: BP 151/63; PULSE 88; RESP 18; O2SAT 97
== END 2022-04-21 22:03 | disposition home or self-care (01) ==
PROVIDERS: Emergency Provider Nurse Practitioner Family; PCP Family Medicine
DX: M54.2 Cervicalgia (principal); G30.9 Alzheimer's disease, unspecified; F02.80 Dementia in other diseases classified elsewhere, unspecified severity, without behavioral disturbance, psychotic disturbance, mood disturbance, and anxiety
CPT/HCPCS: 70450; 72125; 99283